=== PATIENT | female | born 1965 | race Caucasian/White ===

== ENCOUNTER 2017-09-06 03:05 | Inpatient (IN) | payer OTHER ==
[~2017-09-06] VITALS: Ht 152.4 cm; Wt 68.0 kg
[~2017-09-06 03:05] MED LIST: PREMARIN0.625 M1 PO
--- NOTE | 2017-09-06 13:41 | Operative Report ---
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 At first timeout was performed including patient's identification and the surgical procedure to be performed. Then general orotracheal anesthesia was induced with Nims tube for monitoring of the laryngeal nerves. The electrodes were connected to the NIMS monitor. Table was rotated 90 to the patient's left away from anesthesia with left neck toward the surgeon. Head was rotated to the right, left neck exposed. NIMS monitor electrodes were inserted into the left lower lip and trapezius for nerve monitoring of the marginal mandibular and spinal accessory nerves. The electrodes were was secured in place with OpSite. They were then connected to the NIMS monitor which was then set neck dissection mode, 4 leads. Neck was prepped and draped in the routine manner and surgery was performed. A horizontal incision was placed in a skin crease manner about 3 fingerbreadths below the mandible in a skin crease line over the lateral neck. The incision was crosshatched for the end of the surgery skin approximation. The incision was carried with a 15 blade through the skin and subcutaneous tissue. Platysma was identified and transected by using the clamp and cut technique to avoid injury to the marginal mandibular nerve. Skin was then elevated in subplatysmal manner at first superiorly, care was taken not to injure the marginal mandibular nerve. Then inferiorly including anterior neck to the midline and posterior neck over the sternocleidomastoid muscle all the way around to the posterior neck to the region of trapezius muscle. Inferiorly dissection was carried below the level of the cricoid just above the clavicle. Cutaneous branches exiting the Erb's point were identified and preserved including greater auricular nerve and anterior facial nerve. Finger palpation and examination revealed large nodes at level II A&B with adjacent smaller nodes which were all firm on palpation. Nodes were extending to level III. Attention was then paid to the anterior medial border of the sternocleidomastoid muscle and dissection was carried anteriorly and deep to the sternocleidomastoid muscle, with the nodes being dissected away from the sternocleidomastoid mastoid muscle. Then superiorly dissection was carried to the tail of the parotid. Deep to the tail and adjacent to sternocleidomastoid muscle and there were additional lymph nodes which were all dissected with the specimen. Then along the tail of the parotid anteriorly to the submaxillary gland. Anterior facial vein was identified. It was preserved. Marginal mandibular nerve was never fully identified throughout the entire dissection. Most likely the marginal mandibular nerve was more anterior to the area of dissection and not in the way of dissection. Dissection was carried along the inferior border of the submaxillary gland and the deep to the level of the digastric muscle. Fibrofatty tissue below the submaxillary gland under the digastric muscle was dissected with the specimen. Dissection was carried deep to the level of internal jugular. Fibrofatty tissue over the internal jugular was dissected away from the jugular vein. Digastric muscle defined the superior limit of the dissection. Jugular vein was preserved. Spinal accessory nerve was then searched for and identified going across all level II and level III lymph nodes in fact adenopathy spinal accessory nerve from the internal jugular. Spinal accessory was lateralized in relation to the internal jugular. Spinal accessory nerve was dissected and preserved. Sternocleidomastoid muscle was retracted laterally and dissection was carried deep and medial to it. Dissection was carried medially along the internal jugular and carotid. There was a significant venous plexus with large anterior jugular vein which was also preserved. Medial dissection was carried along the internal jugular all the way down to the lower neck, level III. Omohyoid muscle was identified traversing the internal jugular. Dissection was carried below the omohyoid down to level IV lymph node was identified. Blunt dissection was carried along this lymph node down to the inferior border until it was completely dissected and kept together with the remainder of the specimen. Ansa cervicalis was identified and preserved. All the fibrofatty tissue was swept superiorly with the specimen. Additional dissection was carried medial border of the sternocleidomastoid and deep to the sternocleidomastoid extending the dissection onto level V. Additional fibrofatty tissue was removed. Specimen was then removed and consisted primarily of level II A and B, level III and IV lymph nodes. Once the specimen was freed from underlying tissue it was removed. The surgical bed was examined and was no significant bleeding. Please note that during dissection of bleeding was controlled with bipolar. Surgery was completed. Wound was copiously irrigated. Additional bleeding sites cauterized with bipolar. Helotene powder was placed into the neck dissection bed. A #10 Prydeinig suction drains were inserted into the wound for drainage. One drain coming out through the anterior end of the incision the other through the posterior end of the incision. Drains were stitched in place with 2-0 silk. Closure was then carried at first platysma with 4-0 Vicryl inverting sutures followed by skin closure with 5-0 Vicryl horizontal subcuticular running stitch. Dermabond was applied to the incision followed by Steri-Strips. Drain tubing was connected to the self suction carnisters. Pressure dressing was placed with fluffs and wraparound four-inch gauze. Patient was then reawakened, extubated and taken to the recovery room in good condition. There were no complications. Estimated blood loss was 50 mL. Findings: Matted cervical adenopathy extending from levels 2A and B to level II and IV Discharge Disposition: PACU
--- NOTE | 2017-09-06 15:40 | PN- General Surgery ---
Subjective Subjective: Pt. has no complaints. Denies significant pain or dyspnea. Objective Vital Signs and I&Os Alert , oriented, appropriate Slightly hoarse Neck incision without signs of bleeding. Dressing over is clean and dry.JPX2 with scant amounts of serosang. drainage. Lungs clear bilat. Herat regular Abdomen benign Assessment/Plan Assessment/Plan s/p Left neck dissection PO#0 Stable No signs of bleeding, LEXIS output as expected,minimal. Slight hoarse, I expect it will resolve No respiratory issues Initiate diet Pain meds as ordered prn. Labs ordered for am. Core Measures Venous Thromboembolism VTE Risk Factors Surgery No Mechanical VTE Prophylaxis d/t Early Ambulation No VTE Pharm Prophylaxis d/t Other (on Heparin sc q 8 hrs)
[2017-09-06 18:00] VITALS: BP 122/84
[2017-09-06 20:16] VITALS: BP 130/82
[2017-09-06 22:15] VITALS: BP 118/76
[2017-09-07 01:56] VITALS: BP 102/64
[2017-09-07 06:54] VITALS: BP 112/70
[2017-09-07 08:19] LABS: ABSOLUTE EOSINOPHIL COUNT 0 /CUMM (0.0-0.7); ABSOLUTE LYMPH COUNT 2.2 /CUMM (1.2-3.4); EOSINOPHIL % 0.2 % (0-5)
[2017-09-07 08:45] LABS: ABSOLUTE BASOPHIL COUNT 0 /CUMM (0.0-0.2); ABSOLUTE GRANULOCYTE CT 12.2 /CUMM (1.4-6.5); ABSOLUTE MONOCYTE COUNT 1.1 /CUMM (0.10-0.60); BASOPHIL % 0.2 % (0.0-2.0); GRANULOCYTE % 78.5 % (42.2-75.2); MEAN CORPUSCULAR HGB 30.6 PG (27.0-31.0); MEAN CORPUSCULAR HGB CONC 33.8 G/DL (33.0-37.0); MEAN CORPUSCULAR VOLUME 90.6 FL (81.0-99.0); MEAN PLATELET VOLUME 7.9 FL (7.4-10.4); PLATELET COUNT 244 /CUMM (130-400); RBC DISTRIBUTION WIDTH 13.2 % (11.5-14.5); RED BLOOD CELL CT 3.98 /CUMM (4.20-5.40)
[2017-09-07 09:12] LABS: WHITE BLOOD CELL COUNT 15.6 /CUMM (4.8-10.8)
--- NOTE | 2017-09-07 09:29 | PN- Ear, Nose & Throat ---
Subjective Subjective: Patient was nauseated this am after standing up, no emesis, symptoms improved after IM tigan. Has been tolerating diet. No difficulty speaking or swallowing. Reports numbness to left ear since surgery. No chest pain, shortness of breath or difficulty breathing. Has been oob, has been voiding. Objective Vital Signs and I&Os Vital Signs Date Time Temp Pulse Resp B/P B/P Pulse O2 O2 Flow FiO2 Mean Ox Delivery Rate 09/07 0654 98.4 71 20 112/70 97 Nasal 1.0L Cannula 09/07 0156 98.3 74 20 102/64 97 Nasal 1.0L Cannula 09/07 0000 97 Nasal 1.0L Cannula 09/06 2215 98.8 74 20 118/76 98 Nasal 1.0L Cannula 09/06 2015 98.0 73 20 130/82 97 Nasal 1.0L Cannula 09/06 1800 97.8 78 20 122/84 98 Nasal 1.0L Cannula Intake & Output 09/07 1600 09/07 0800 09/07 0000 09/06 1600 09/06 0800 09/06 0000 Intake Total 920 740 Output Total 323 1425 Balance 597 -685 Intake, IV 800 500 Intake, Oral 120 240 Output, 23 25 Drainage Output, Urine 300 1400 Patient 140 lb Weight Physical Exam: General: Alert and oriented x3, no acute distress Cardiac: RRR, s1s2 Pulm: CTA bilaterally ABD: Soft, non-tender, non-distneded Extremities: Moves all extremities, distal sesnation intact, skin warm and well perused. DP intact. Bilateral calves soft and non-tender Neck: Dressing intact. JAGDISH x2 holding suction. Output low (see i/o) Assessment/Plan Assessment/Plan This is a 52 year old female, POD 1, s/p left neck dissection for thyroid ca. Placed in observation status postop for administration of iv abx while jagdish drains in place, monitoring, iv pain medication. -Continue abx -Continue jagdish x2 to self suction, will likely dc drains today, Dr. Boyd to see -IM tigan painful to injection site, will change to iv anti-emetic if needed -Continue diet as tolerated, will dc iv fluids for now, restart if nausea/dizzy -Possible dc to home today Will discuss with Dr. Boyd Core Measures Venous Thromboembolism VTE Risk Factors Surgery No Mechanical VTE Prophylaxis d/t Early Ambulation No VTE Pharm Prophylaxis d/t Other (on Heparin sc q 8 hrs)
[2017-09-07 10:25] VITALS: BP 120/60
--- NOTE | 2017-09-07 12:45 | PN- Gen Med ---
Assessment/Plan Assessment: POD#1 pt has nause, left neck pain, ear lobe numbness drains right- scant, left 20cc over night right drain removed dressing changed neck- no swelling or hematoma wbc 15.6, elevated Plan: s/ p neck dissection, left right drain was removed dresisng reapplied patinet needs to be admitted due to nause, vomitting, IV hydratiion, IV morphine for pain control will encourage pt to increase po intake manage nausea w/ zofran out of bed, ambulate ? remove second drain tomorrow repeat WBC tomorrow Discharge Plan Stable for Discharge? No Subjective Tele-Events Since Last Visit: noncontributary Review of Systems Constitutional: Reports: no symptoms. Objective Last 24 Hrs of Vital Signs/I&O Vital Signs Date Time Temp Pulse Resp B/P B/P Pulse O2 O2 Flow FiO2 Mean Ox Delivery Rate 09/07 1025 97.9 64 20 120/60 95 09/07 0654 98.4 71 20 112/70 97 Nasal 1.0L Cannula 09/07 0156 98.3 74 20 102/64 97 Nasal 1.0L Cannula 09/07 0000 97 Nasal 1.0L Cannula 09/06 2215 98.8 74 20 118/76 98 Nasal 1.0L Cannula 09/06 2015 98.0 73 20 130/82 97 Nasal 1.0L Cannula 09/06 1800 97.8 78 20 122/84 98 Nasal 1.0L Cannula Intake & Output 09/07 1600 09/07 0800 09/07 0000 Intake Total 920 740 Output Total 323 1425 Balance 597 -685 Intake, IV 800 500 Intake, Oral 120 240 Output, 23 25 Drainage Output, Urine 300 1400 Physical Exam General Appearance: Alert, Oriented X3, Mild Distress
--- NOTE | 2017-09-07 12:58 | PN- Ear, Nose & Throat ---
Surgical Brief Attending Note Brief Attending Note: Assessment/Plan Assessment: POD#1 pt has nause, left neck pain, ear lobe numbness drains right- scant, left 20cc over night right drain removed dressing changed neck- no swelling or hematoma wbc 15.6, elevated Plan: s/ p neck dissection, left right drain was removed dresisng reapplied patinet needs to be admitted due to nause, vomitting, IV hydratiion, IV morphine for pain control will encourage pt to increase po intake manage nausea w/ zofran out of bed, ambulate ? remove second drain tomorrow repeat WBC tomorrow Discharge Plan Stable for Discharge? No Subjective Tele-Events Since Last Visit: noncontributary Review of Systems Constitutional: Reports: no symptoms. Objective Last 24 Hrs of Vital Signs/I&O Vital Signs Date Time Temp Pulse Resp B/P B/P Pulse O2 O2 Flow FiO2 Mean Ox Delivery Rate 09/07 1025 97.9 64 20 120/60 95 09/07 0654 98.4 71 20 112/70 97 Nasal 1.0L Cannula 09/07 0156 98.3 74 20 102/64 97 Nasal 1.0L Cannula 09/07 0000 97 Nasal 1.0L Cannula 09/06 2215 98.8 74 20 118/76 98 Nasal 1.0L Cannula 09/06 2016 98.0 73 20 130/82 97 Nasal 1.0L Cannula 09/06 1800 97.8 78 20 122/84 98 Nasal 1.0L Cannula Intake & Output 09/07 1600 09/07 0800 09/07 0000 Intake Total 920 740 Output Total 323 1425 Balance 597 -685 Intake, IV 800 500 Intake, Oral 120 240 Output, 23 25 Drainage Output, Urine 300 1400
[2017-09-07 15:30] VITALS: BP 120/80
[2017-09-07 18:54] VITALS: BP 130/82
[2017-09-07 22:07] VITALS: BP 150/90
[2017-09-08 07:00] VITALS: BP 140/80
--- NOTE | 2017-09-08 09:30 | PN- Ear, Nose & Throat ---
See Addendum Subjective Subjective: Patient feeling a lot better. Pain is controlled on by mouth medication. No difficulty swallowing. She ate a full breakfast today without difficulty. Her nausea has completely resolved, she has no abdominal pain or distention, she is passing gas. Objective Vital Signs and I&Os Vital Signs Date Time Temp Pulse Resp B/P B/P Pulse O2 O2 Flow FiO2 Mean Ox Delivery Rate 09/08 0700 98.6 76 18 140/80 95 09/07 2207 98.6 70 18 150/90 96 09/07 1854 69 130/82 09/07 1530 98.0 65 20 120/80 98 09/07 1025 97.9 64 20 120/60 95 Intake & Output 09/08 1600 09/08 0800 09/08 0000 09/07 1600 09/07 0809/07 0000 Intake Total 750 800 450 920 740 Output Total 500 1760 2750 343 653 4078 Balance -500 -1010 -1950 250 597 -685 Intake, IV 450 800 800 500 Intake, Oral 300 450 120 240 Output, 10 23 25 Drainage Output, Urine 500 1750 2750 598 930 6775 Patient 150 lb Weight Physical Exam: Well-developed well-nourished no apparent distress. HEENT: Atraumatic, extraocular motion intact Neck: Supple, dressing in place dci, no significant swelling, LEXIS drain noted with scant amount of serous drainage speaking and sallowing without difficluty. Respiratory: No respiratory distress Extremities: No edema, no calf pain Neuro: Alert and oriented x3 Psych: Mood affect normal, normal memory normal judgment. Skin: Warm and dry, no rash on exposed skin Assessment/Plan Assessment/Plan POD2 s/p Left neck dissection nausea resolved pain controlled on PO meds. tolerating diet. out of bed, ambulate ? remove second drain today and DC home, will DEVON Boyd Core Measures Venous Thromboembolism VTE Risk Factors Surgery No Mechanical VTE Prophylaxis d/t Early Ambulation No VTE Pharm Prophylaxis d/t Other (on Heparin sc q 8 hrs)
[2017-09-08 09:49] LABS: ABSOLUTE BASOPHIL COUNT 0.1 /CUMM (0.0-0.2); ABSOLUTE EOSINOPHIL COUNT 0 /CUMM (0.0-0.7); ABSOLUTE GRANULOCYTE CT 9.2 /CUMM (1.4-6.5); ABSOLUTE LYMPH COUNT 2.2 /CUMM (1.2-3.4); ABSOLUTE MONOCYTE COUNT 0.7 /CUMM (0.10-0.60); BASOPHIL % 0.4 % (0.0-2.0); EOSINOPHIL % 0.4 % (0-5); GRANULOCYTE % 75.2 % (42.2-75.2); MEAN CORPUSCULAR HGB 30.8 PG (27.0-31.0); MEAN CORPUSCULAR HGB CONC 33.9 G/DL (33.0-37.0); MEAN CORPUSCULAR VOLUME 90.7 FL (81.0-99.0); MEAN PLATELET VOLUME 7.9 FL (7.4-10.4); PLATELET COUNT 241 /CUMM (130-400); RED BLOOD CELL CT 4.08 /CUMM (4.20-5.40); WHITE BLOOD CELL COUNT 12.3 /CUMM (4.8-10.8)
--- NOTE | 2017-09-08 11:26 | Patient Discharge Instructions ---
Discharge Instructions General Discharge Information You were seen/treated for: Name of Procedure: Neck dissection with Nims monitor, left Pre-Operative Diagnosis: Malignant cervical lymph nodes, left You had these procedures: see above Watch for these problems: Worsening redness, swelling, drainage from the wound, pain, fever, difficulty swallowing Call the office with any concerns Do not soak the wound: Yes No bath, but you may shower: No Other wound care: keep dressing in place, do not get wet Special Instructions: take medications that were prescribed to you by Dr Boyd as out pt. Diet Continue normal diet: Yes Activity Full Activity/No Limits: No Acute Coronary Syndrome Inclusion Criteria At DC or during hospital stay patient has or had the following: ACS DIAGNOSIS No Discharge Core Measures Meds if any: Prescribed or Continued at Discharge Meds if any: NOT Prescribed or Continued at Discharge Congestive Heart Failure Inclusion Criteria At DC or during hospital stay patient has or had the following: CHF DIAGNOSIS No Discharge Core Measures Meds if any: Prescribed or Continued at Discharge Meds if any: NOT Prescribed or Continued at Discharge Cerebrovascular accident Inclusion Criteria At DC or during hospital stay patient has or had the following: CVA/TIA Diagnosis No Discharge Core Measures Meds if any: Prescribed or Continued at Discharge Meds if any: NOT Prescribed or Continued at Discharge Venous thromboembolism Inclusion Criteria VTE Diagnosis No VTE Type NONE VTE Confirmed by (Test) NONE Discharge Core Measures - Per Current guidelines, there needs to be overlap - treatment for the first 5 days of Warfarin therapy. - If discharged on Warfarin prior to 5 days of - overlap therapy, the patient will need to be - assessed for post discharge needs including - *Post discharge parental anticoagulation - *Warfarin and/or parental anticoagulation education - *Follow up date to check INR post discharge At least 5 days overlap therapy as Inpatient No Meds if any: Prescribed or Continued at Discharge Note: Overlap Therapy is Warfarin and Anticoagulant Meds if any: NOT Prescribed or Continued at Discharge
--- NOTE | 2017-09-08 11:32 | Surg Short-stay <48hrs Dis Sum ---
Visit Information Visit Dates Admission Date: 09/07/17 Discharge Date: 09/08/17 Surgical Short Stay DC Summary Admission Diagnosis: Name of Procedure: Neck dissection with Nims monitor, left Pre-Operative Diagnosis: Malignant cervical lymph nodes, left Final Diagnosis: same Procedure(s): see above Summary/Significant Findings: Patient underwent the above mentioned procedure without complications. 2 drains were placed and removed 1 on postop day 1, the second on postop day 2. Her diet was advanced, her pain was well controlled, she received antibiotics for infectious prophylaxis, her drains were removed and she was deemed stable for discharge home with close outpatient follow-up Condition at Discharge: Good Discharge Disposition: home or self care Discharge instructions provided to patient/family: Yes Post discharge follow-up plan: To follow-up with Dr. Boyd on Sunday
== END 2017-09-08 12:10 | DRG 825 ==
LOC: STS 03:05 → PACUH 13:50 → ENRESERV 14:27 → ENTRNSPT 15:08 → EDTRNSPT 15:24 → EDTRNSPTSTS 15:24 → 2NA 15:29 → CMPTRNSPT 15:42 → 2NA 09-07 13:15
PROVIDERS: Nurse Practitioner; Physician Assistant Surgical
PROC: 07B10ZX Excision of Right Neck Lymphatic, Open Approach, Diagnostic (ICD-10-PCS; principal; 2017-09-07)
PROC: 4A11X4G Monitoring of Peripheral Nervous Electrical Activity, Intraoperative, External Approach (ICD-10-PCS; 2017-09-07)
DX: C96.9 Malignant neoplasm of lymphoid, hematopoietic and related tissue, unspecified (principal)
CPT/HCPCS: 2NASP; 36415; 82436; C9399; J0131; J0690; J1644; J2405; J3250

== ENCOUNTER 2017-10-04 04:29 | Inpatient (IN) | payer OTHER ==
[~2017-10-04] VITALS: Ht 152.4 cm; Wt 62.6 kg
[~2017-10-04 04:29] MED LIST changes: +MULTIVITAMINS1 EAC9 PO
--- NOTE | 2017-10-04 13:35 | Operative Report ---
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 Skin lesion lower midline neck Post-Operative Diagnosis: Same Estimated Blood Loss: less than 50ml Surgeon/Lumite Injector: Oliver ELDRIDGE,TATYANA Dan Anesthesia: general endotracheal tube Monitors: NIMS monitor Drains: LEXIS 2 Specimens: Total thyroid Encarnacion ligament thyroid tissue, right Encarnacion ligament thyroid tissue, left Skin lesion Frozen section to rule out parathyroid Microbiology: Non- Complications: Non- Condition: Stable on leaving the OR Operative Indication: Patient presented with left cervical nodes enlargement workup was consistent with papillary carcinoma of the thyroid Patient underwent left neck dissection which confirmed papillary carcinoma of the thyroid metastatic to lymph nodes Patient now presents for total thyroidectomy and central neck exploration Operative/Procedure Note Note: The patient was brought to the operating room. Patient was placed on the operating room table in supine position. At first timeout was performed including patient's identification and the surgical procedure to be performed. Then general orotracheal anesthesia was induced. NIMS tube was inserted with direct visualization with the glida scope. Electrodes were placed directly over the vocal cords. NIMS tube was secured in place with tape. The grounding electrodes were then inserted into the sternum area and all electrodes were connected to the NIMS monitor. NIMS monitor was set on thyroidectomy mode. Gentle top of the patient's lower neck in para laryngeal and tracheal region yielded a nerve action potential which was visualized on the monitor. Action potential visualized on both sides which confirmed proper positioning of the NIMS tube. Neck was slightly hyperextended. The proposed incision was previously marked in a short-term surgery with patient sitting upright. Surgical table was left in place with head toward anesthesia. Neck was prepped and draped in the routine manner and surgery was performed. A horizontal incision was placed in a skin crease manner over the lower neck as previously marked. The incision was then crosshatched for skin approximation at the end of the surgery. The incision was carried with a 15 blade through the skin and subcutaneous tissue. Platysma was identified and transected next. The superior skin flap was then elevated in subplatysmal manner. Then the inferior skin flap was elevated in subplatysmal manner. Both skin flaps were then retracted by application stay sutures with 2-0 silk. Care was taken to preserve the subplatysmal venous plexus which was quite extensive. Strap muscles were identified in the midline and . Sternal notch, trachea, cricoid ring and larynx were palpated. Dissection was carried in the midline over upper trachea until the thyroid isthmus was identified. Strap muscles on the left were then retracted laterally and attention was paid to the inferior thyroid lobe. All venous and arterial supply was then carefully dissected. It was bipolared, as well as clamped, cut and tied. The inferior parathyroid gland was not clearly visualized. However, the dissection was carried directly on the thyroid capsule which preserved the inferior parathyroid gland. Thyroid gland was very vascular. Next, blunt dissection was used to dissect overlying soft tissue over the anterior surface of the gland. The gland was normal size, somewhat firm . It had significant venous plexus all over. Inferior lateral dissection was carried next. Venous supply was dissected away from the gland and the clamped cut and tied. The superior parathyroid gland was identified on the undersurface of the gland. Parathyroid gland was gently elevated and from the thyroid tissue and left intact. Superiorly, dissection was carried from the thyroid isthmus over the anterior superior surface of the gland. The vascular supply was gently dissected and severed by using bipolar. Superior vascular pedicle including artery and vein were identified. They were clamped cut and tied. The gland was then gently rotated out of its bed. The only attachments left were at the Encarnacion ligament. So far recurrent laryngeal nerve was not fully identified. As the gland was markedly stuck at the Encarnacion ligament decision was made to proceed with dissection on the contralateral side, right. Next thyroid isthmus was completely freed over the soft inferior and superior border and its undersurface. Strap muscles on the right were then retracted laterally and attention was paid to the inferior thyroid lobe on the right. Overall the right lobe appears to be less adhesed to surrounding structures. All venous and arterial supply was then carefully dissected. It was bipolared, as well as clamped, cut and tied. The inferior parathyroid gland was not clearly visualized. However, the dissection was carried directly on the thyroid capsule which preserved the inferior parathyroid gland. Thyroid gland was very vascular. Next, blunt dissection was used to dissect overlying soft tissue over the anterior surface of the gland. The gland was normal size, somewhat firm . It had significant venous plexus all over. Inferior lateral dissection was carried next. Venous supply was dissected away from the gland and the clamped cut and tied. The superior parathyroid gland was identified on the undersurface of the gland. Parathyroid gland was gently elevated and from the thyroid tissue and left intact. Superiorly, dissection was carried from the thyroid isthmus over the anterior superior surface of the gland. The vascular supply was gently dissected and severed by using bipolar. Superior vascular pedicle including artery and vein were identified. They were clamped cut and tied. The gland was then gently rotated out of its bed. The only attachments were at the Encarnacion ligament. The recurrent laryngeal nerve was identified grossly and where the nerve stimulator. At this point careful dissection was carried from the belly ligament until the entire gland was freed on the right side, with full observation of the recurrent laryngeal nerve positioning. The right lobe was rotated out of the surgical bed and the only attachment was now at the Encarnacion ligament on the left. Careful blunt dissection of the Encarnacion ligament was then carried. The left lower lobe was completely freed and the entire thyroid gland was removed. There was a small outpouching at the inferior pole on the left which possibly could've been a parathyroid gland. A biopsy of this tissue was then taken. Frozen section revealed thyroid tissue and no parathyroid gland. At this point recurrent laryngeal nerve on the left was identified and confirmed with Nims monitor. Now, residual thyroid tissue present at the Encarnacion ligament on the left was carefully dissected and removed followed by similar maneuver on the right. Thyroid gland Now examination was carried at the central neck, gentle dissection and exploration for cervical lymph nodes was carried through the surrounding tissue within the thyroid bed. No adenopathy was encountered both on the right and the left as well as in pretracheal region. No lymph nodes were removed. Surgical bed was copiously irrigated. Surgeons changed gloves and applied fresh towels around the wound. Additional irrigation was then carried. The wound was carefully inspected for bleeders. There was small amount of bleeding in the region of recurrent laryngeal nerve. Pressure application with surgical sponges was carried for a period of 5 minutes with resultant resolution of the bleeding. Valsalva was applied. There was no air leak and no additional bleeding. Helotene powder was placed into the thyroid bed for hemostasis. Two #10 Citizen [place] suction drains were inserted into the wound for drainage each exiting on each end of the wound. They were stitched 2-0 silk. Closure was then carried at first platysma with 4-0 Vicryl inverting sutures. Then skin was approximated with subcuticular horizontal running stitch with 5-0 Monocryl . At the time of the skin closure and there was a lesion just adjacent to the incision. This was approximately one by one raised lesion with brown discoloration. The lesion was shave excised and submitted to pathology. Dermabond was applied to the incision followed by Steri-Strips. Pressure dressing was placed with fluffs and wraparound four-inch Alida gauze. Patient was then reawakened, recurrent laryngeal nerve was monitored during extubation. There was normal action potential on both sides. Patient was then extubated and taken to the recovery room in good condition. There were no complications. Estimated blood loss was 50 mL. Findings: Thyroid glands normal size, highly vascular, somewhat fibrosed on the left side, markedly adhesed Encarnacion ligament, both recurrent laryngeal nerves were identified and preserved, both nerves were stimulated at the end of the procedure and there were working Discharge Disposition: PACU
[2017-10-04 14:40] VITALS: BP 124/80
--- NOTE | 2017-10-04 15:29 | PN- General Surgery ---
Subjective Subjective: Pt. in CCU, no complaining, States she is comfortable . Sipping on clears without difficulty of swallowing. Objective Vital Signs and I&Os Intake & Output 10/04 1600 10/04 0800 10/04 0000 10/03 1600 10/03 0000 Intake Total Output Total Balance Patient 138 lb Weight Alert, oriented, no hoarsness.VSS Lungs are clear Neck with dressing over, it is clean, dry. JPX2 with scant amounts of serosang. drainage. No swelling. Heart regular Abdomen benign. Assessment/Plan Assessment/Plan s/p total thyroidectomy POD#0 Stable hemodynamics. Neck incision/ wound as expected.LEXIS output minimal. Comfortable on current pain meds. Calcium in PACU 8.7, next pending for 8 pm tonight. Continue clears and may advance as tolerated. Core Measures Venous Thromboembolism VTE Risk Factors Surgery No Mechanical VTE Prophylaxis d/t LowRisk-No Interven Req'd No VTE Pharm Prophylaxis d/t LowRisk-No Interven Req'd
[2017-10-05] VITALS: BP 106/64
[2017-10-05 05:18] LABS: ABSOLUTE BASOPHIL COUNT 0 /CUMM (0.0-0.2); ABSOLUTE EOSINOPHIL COUNT 0 /CUMM (0.0-0.7); ABSOLUTE GRANULOCYTE CT 16.1 /CUMM (1.4-6.5); ABSOLUTE LYMPH COUNT 1.8 /CUMM (1.2-3.4); ABSOLUTE MONOCYTE COUNT 1.1 /CUMM (0.10-0.60); BASOPHIL % 0.2 % (0.0-2.0); EOSINOPHIL % 0 % (0-5); HEMATOCRIT 38.3 % (37-47); MEAN CORPUSCULAR HGB 29.9 PG (27.0-31.0); MEAN CORPUSCULAR HGB CONC 32.6 G/DL (33.0-37.0); MEAN CORPUSCULAR VOLUME 91.6 FL (81.0-99.0); PLATELET COUNT 238 /CUMM (130-400); RED BLOOD CELL CT 4.18 /CUMM (4.20-5.40); WHITE BLOOD CELL COUNT 19.1 /CUMM (4.8-10.8)
--- NOTE | 2017-10-05 05:43 | Admission Core Measures ---
Acute Coronary Syndrome (CM) ACS Core Measures Acute Coronary Syndrome Diagnosis No Congestive Heart Failure (NEW) CHF Core Measures Congestive Heart Failure Diagnosis No Cerebrovascular Accident (NEW) CVA Core Measures CVA/TIA Diagnosis No Venous Thromboembolism VTE Core Eind (View Protocol) VTE Risk Factors Surgery No Mechanical VTE Prophylaxis d/t LowRisk-No Interven Req'd No VTE Pharm Prophylaxis d/t LowRisk-No Interven Req'd Problem List As ranked by this Provider includes Assessment & Plan 1. Papillary thyroid carcinoma 2. S/P total thyroidectomy HOME MEDS Home Med List Estrogenic Subst Conj (Premarin) 0.625 MG TABLET 1 TAB PO DAILY HRT (Reported ) Multiple Vitamin (Multivitamins) 1 EACH TABLET 1 TAB PO DAILY supplement ( Reported)
[2017-10-05 05:54] LABS: GRANULOCYTE % 84.6 % (42.2-75.2)
--- NOTE | 2017-10-05 06:02 | PN- Ear, Nose & Throat ---
Subjective Subjective: Patient reports incisional pain, which is well controlled. She reports mild pain with swallowing and discomfort swallowing carbonated beverages. States she has mostly had water. Reports that she has an appetite and is requesting food. Reports one episode of dizziness when ambulating oob to the bathroom. Reports voiding. Denies fever, chills, chest pain or trouble breathing. Objective Vital Signs and I&Os Vital Signs Date Time Temp Pulse Resp B/P B/P Pulse O2 O2 Flow FiO2 Mean Ox Delivery Rate 10/05 0000 98.9 62 12 106/64 95 Room Air Room Air 10/04 1440 97.3 89 20 124/80 95 Room Air Intake & Output 10/05 0000 10/04 1600 10/04 0810/04 0000 10/03 1600 Intake Total 700 Output Total 910 Balance -210 Intake, IV 700 Intake, Oral 0 Output, 10 Drainage Output, Urine 900 Patient 138 lb 138 lb Weight Weight Reported by Patient Measurement Method Physical Exam: Gen - resting comfortably in icu awake an alert in NAD Neck - circumfrential dressing c/d/i, steri in place, LEXIS x2 with serosang drainage, roughly 15 cc in right drain and scant amount < 5cc in left drain, appropriately tender wanda-incisionally, no erythema, drainage or hematoma noted Cardiac - S1S2 noted, RRR Lungs - CTAB Ext - alps in place, no edema or calf tenderness Current Medications: Current Medications Sig/Niya Start time Last Medication Dose Route Stop Time Status Admin Acetaminophen 325 MG Q4P PRN 10/04 1515 AC 10/04 PO 2350 Acetaminophen 1,000 MG .STK-MED ONE 10/04 1301 DC IV 10/04 1302 Calcium/Vitamin D 500 MG BID 10/04 1328 AC 10/04 PO 2154 Cefazolin Sodium 1,000 MG IQ8 10/04 1600 AC 10/04 IV 10/05 1559 2349 Cefazolin Sodium 1,000 MG ONCE 10/04 0000 DC IV 10/04 2359 Estrogens Conjugated 0.625 MG DAILY 10/05 1000 DC PO Fentanyl Citrate 100 MCG .STK-MED ONE 10/04 0645 DC IM 10/04 0646 Hydromorphone HCl 1 MG Q4P PRN 10/04 1515 AC 10/05 IV 0150 Lactated Ringer's 1,000 ML 100 MLS/HR 10/04 1515 AC IV Liothyronine Sodium 30 MCG BID 10/04 1417 AC 10/04 PO 2153 Midazolam HCl 4 MG .STK-MED ONE 10/04 0645 DC IM 10/04 0646 Multivitamins 1 TAB DAILY 10/05 1000 DC Therapeutic PO Non-Formulary 30 UNIT BID 10/04 1356 CAN Medication ANY Omeprazole 20 MG DAILY AC 10/05 0700 AC PO Ondansetron HCl 4 MG Q6P PRN 10/04 1515 AC 10/04 IV 2147 Oxycodone HCl 10 MG Q6-PRN PRN 10/04 1515 AC 10/04 PO 1824 Oxycodone HCl 5 MG Q6P PRN 10/04 1330 AC PO Polyethylene Glycol 17 GM DAILY 10/05 1000 AC PO Remifentanil HCl 4 MG .STK-MED ONE 10/04 0644 DC IV 10/04 644 Scopolamine HBr 0 .STK-MED ONE 10/04 0752 DC TOP Results Last 48 Hours of Labs: Laboratory Tests 10/05 10/05 10/04 0425 0425 2014 Chemistry Sodium (137 - 145 mmol/L) 142 Potassium (3.5 - 5.1 mmol/L) 3.8 Chloride (98 - 107 mmol/L) 105 Carbon Dioxide (22 - 30 mmol/L) 23 Anion Gap (5 - 16) 13 BUN (7 - 17 mg/dL) 11 Creatinine (0.5 - 1.0 mg/dL) 0.6 Estimated GFR (>60 ml/min) > 60 BUN/Creatinine Ratio (7 - 25 %) 18.3 Calcium (8.4 - 10.2 mg/dL) Cancelled 9.0 8.6 Hematology CBC w Diff NO MAN DIFF REQ WBC (4.8 - 10.8 /CUMM) 19.1 H RBC (4.20 - 5.40 /CUMM) 4.18 L Hgb (12.0 - 16.0 G/DL) 12.5 Hct (37 - 47 %) 38.3 MCV (81.0 - 99.0 FL) 91.6 MCH (27.0 - 31.0 PG) 29.9 MCHC (33.0 - 37.0 G/DL) 32.6 L RDW (11.5 - 14.5 %) 13.0 Plt Count (130 - 400 /CUMM) 238 MPV (7.4 - 10.4 FL) 8.0 Gran % (42.2 - 75.2 %) 84.6 H Lymphocytes % (20.5 - 51.1 %) 9.7 L Monocytes % (1.7 - 9.3 %) 5.5 Eosinophils % (0 - 5 %) 0 Basophils % (0.0 - 2.0 %) 0.2 Absolute Granulocytes (1.4 - 6.5 /CUMM) 16.1 H Absolute Lymphocytes (1.2 - 3.4 /CUMM) 1.8 Absolute Monocytes (0.10 - 0.60 /CUMM) 1.1 H Absolute Eosinophils (0.0 - 0.7 /CUMM) 0 Absolute Basophils (0.0 - 0.2 /CUMM) 0 10/04 10/04 1349 1325 Chemistry Sodium (137 - 145 mmol/L) Cancelled 143 Potassium (3.5 - 5.1 mmol/L) Cancelled 3.7 Chloride (98 - 107 mmol/L) Cancelled 110 H Carbon Dioxide (22 - 30 mmol/L) Cancelled 22 Anion Gap (5 - 16) Cancelled 11 BUN (7 - 17 mg/dL) Cancelled 11 Creatinine (0.5 - 1.0 mg/dL) Cancelled 0.6 Estimated GFR (>60 ml/min) > 60 BUN/Creatinine Ratio (7 - 25 %) Cancelled 18.3 Calcium (8.4 - 10.2 mg/dL) 8.7 Albumin (3.5 - 5.0 g/dL) 3.5 Assessment/Plan Assessment/Plan 52 F POD 1 s/p total thyroidectomy secondary to papillary thyroid carcinoma, metastatic to left neck lymph nodes who is recovering well. Calcium levels in normal range. Cont clears, advance as tolerated Ancef postop while drain in place Cont Cytomel Cont Calcium and Vitamin D supplements bid Pain meds prn LEXIS x2 to bulb suction, anticipate removal of left drain today Home meds on board Encourage ambulation Anticipate d/c within 24-48 hours Likely transfer out of ICU Will d/w Dr. Body Core Measures Venous Thromboembolism VTE Risk Factors Surgery No Mechanical VTE Prophylaxis d/t LowRisk-No Interven Req'd No VTE Pharm Prophylaxis d/t LowRisk-No Interven Req'd
[2017-10-05 08:00] VITALS: BP 122/70
[2017-10-05 14:35] VITALS: BP 118/78
--- NOTE | 2017-10-05 14:42 | Patient Discharge Instructions ---
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 Skin lesion lower midline neck You had these procedures: Surgery Date: 10/04/17 Name of Procedure: Total thyroidectomy with NIMS monitor With central neck exploration Shave excision neck lesion Watch for these problems: fever>101.3, increased pain, redness/swelling/drainage, dizziness, shortness of breath, chest pains, difficulty swallowing, paresthesias No bath, but you may shower: Yes Other wound care: as per Dr.Byrne daniela wolff dressing changes Diet Continue normal diet: Yes Recommended Diet: Regular Activity Full Activity/No Limits: No Activity Self Limited: Yes Pounds, do NOT lift more than: 10 Acute Coronary Syndrome Inclusion Criteria At DC or during hospital stay patient has or had the following: ACS DIAGNOSIS No Discharge Core Measures Meds if any: Prescribed or Continued at Discharge Meds if any: NOT Prescribed or Continued at Discharge Congestive Heart Failure Inclusion Criteria At DC or during hospital stay patient has or had the following: CHF DIAGNOSIS No Discharge Core Measures Meds if any: Prescribed or Continued at Discharge Meds if any: NOT Prescribed or Continued at Discharge Cerebrovascular accident Inclusion Criteria At DC or during hospital stay patient has or had the following: CVA/TIA Diagnosis No Discharge Core Measures Meds if any: Prescribed or Continued at Discharge Meds if any: NOT Prescribed or Continued at Discharge Venous thromboembolism Inclusion Criteria VTE Diagnosis No VTE Type NONE VTE Confirmed by (Test) NONE Discharge Core Measures - Per Current guidelines, there needs to be overlap - treatment for the first 5 days of Warfarin therapy. - If discharged on Warfarin prior to 5 days of - overlap therapy, the patient will need to be - assessed for post discharge needs including - *Post discharge parental anticoagulation - *Warfarin and/or parental anticoagulation education - *Follow up date to check INR post discharge At least 5 days overlap therapy as Inpatient No Meds if any: Prescribed or Continued at Discharge Note: Overlap Therapy is Warfarin and Anticoagulant Meds if any: NOT Prescribed or Continued at Discharge
[2017-10-05] MEDS ORDERED: TYLENOL325 M1 PO (14:50)
[2017-10-05] MEDS ORDERED: OXYCODONE HCL5 M1 PO (14:50)
[2017-10-05] MEDS ORDERED: OS-CAL 500+D31 EACH PO (14:50)
[2017-10-05] MEDS ORDERED: CYTOMEL25 MC1 PO (14:50)
--- NOTE | 2017-10-05 14:59 | Surg Short-stay <48hrs Dis Sum ---
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 Skin lesion lower midline neck Final Diagnosis: same as above, s/p Surgery Date: 10/04/17 Name of Procedure: Total thyroidectomy with NIMS monitor With central neck exploration Shave excision neck lesion Procedure(s): Surgery Date: 10/04/17 Name of Procedure: Total thyroidectomy with NIMS monitor With central neck exploration Shave excision neck lesion Summary/Significant Findings: Electively scheduled total thyroidectomy with NIMS monitor, central neck exploration, and shave excision neck lesion by on 10/04/17 for history of papillary thyroid carcinoma metastatic to left neck lymph nodes and skin lesion lower midline neck. Admitted to icu post-operatively for monitoring, with antibiotics continued wanda-operatively until both drains were removed. Serial calcium checks were stable. Diet was advanced as tolerated, and she was downgraded to gen med status on POD#1, with plans for discharge to home on POD#2 with medications as prescribed by . Condition at Discharge: stable Discharge Disposition: home or self care Discharge instructions provided to patient/family: Yes Post discharge follow-up plan: follow up with next week Copies to: Shaun ELDRIDGE,Graham Winslow
--- NOTE | 2017-10-05 19:44 | PN- Ear, Nose & Throat ---
Subjective Subjective: POD #1 Afeb, vss tolerated regular diet for dinner today quite well voice clear ca 9.0 this AM WBC 19 Neck - dresing changed, one LEXIS already removed, steristrips in palce, no hematma , no edema Review of Systems: noncontributary Objective Vital Signs and I&Os Vital Signs Date Time Temp Pulse Resp B/P B/P Pulse O2 O2 Flow FiO2 Mean Ox Delivery Rate 10/05 1435 99.3 86 20 118/78 96 Room Air Room Air 10/05 799 99.0 72 22 122/70 94 Room Air 10/05 0000 98.9 62 12 106/64 95 Room Air Room Air Intake & Output 10/05 1600 10/05 0000 10/04 1600 10/04 0000 Intake Total 820 500 700 Output Total 1200 815 910 Balance -380 -315 -210 Intake, IV 20 300 700 Intake, Oral 800 200 0 Number 0 Bowel Movements Output, 15 10 Drainage Output, Urine 1200 800 900 Patient 138 lb 138 lb Weight Weight Reported by Patient Reported by Patient Measurement Method Assessment/Plan Assessment/Plan 1. s/p thyroidectomy, 10/04/2017 2. Postoperative leukocytosis Stable postop We will remove LEXIS #2 tomorrow Check calcium and CBC prior to discharge Discharge home tomorrow Patient already has Cytomel, Duricef and Percocet at home She is to take calcium twice daily 2 weeks Keep dressing on until Sunday, then remove Follow up in the office on 10/10/2017 Core Measures Venous Thromboembolism VTE Risk Factors Surgery No Mechanical VTE Prophylaxis d/t LowRisk-No Interven Req'd No VTE Pharm Prophylaxis d/t LowRisk-No Interven Req'd
[2017-10-05 21:49] VITALS: BP 120/70
[2017-10-06 08:25] LABS: ABSOLUTE BASOPHIL COUNT 0.1 /CUMM (0.0-0.2); ABSOLUTE EOSINOPHIL COUNT 0.1 /CUMM (0.0-0.7); ABSOLUTE LYMPH COUNT 2.7 /CUMM (1.2-3.4); ABSOLUTE MONOCYTE COUNT 0.8 /CUMM (0.10-0.60); BASOPHIL % 0.5 % (0.0-2.0); EOSINOPHIL % 0.4 % (0-5); GRANULOCYTE % 68.8 % (42.2-75.2); HEMATOCRIT 35.2 % (37-47); MEAN CORPUSCULAR HGB 30.5 PG (27.0-31.0); MEAN CORPUSCULAR HGB CONC 33.8 G/DL (33.0-37.0); MEAN CORPUSCULAR VOLUME 90.1 FL (81.0-99.0); MEAN PLATELET VOLUME 7.6 FL (7.4-10.4); PLATELET COUNT 200 /CUMM (130-400); RBC DISTRIBUTION WIDTH 13.2 % (11.5-14.5); RED BLOOD CELL CT 3.91 /CUMM (4.20-5.40); WHITE BLOOD CELL COUNT 11.6 /CUMM (4.8-10.8)
--- NOTE | 2017-10-06 09:46 | PN- Ear, Nose & Throat ---
Subjective Subjective: POD#2 S/P TOTAL THYROIDECTOMY NO MAJOR ISSUES OVERNIGHT DENIES CP, SOB, NO N+V WITH DIET NO SWALLOWING DIFFICULTY Objective Vital Signs and I&Os Vital Signs Date Time Temp Pulse Resp B/P B/P Pulse O2 O2 Flow FiO2 Mean Ox Delivery Rate 10/059 98.2 80 20 120/70 96 Room Air 10/05 1435 99.3 86 20 118/78 96 Room Air Room Air Intake & Output 10/06 1600 10/06 0810/06 0000 10/05 1600 10/05 0810/05 0000 Intake Total 100 600 820 500 700 Output Total 5 1200 815 910 Balance 100 595 -380 -315 -210 Intake, IV 20 300 700 Intake, Oral 100 600 800 200 0 Number 0 Bowel Movements Output, 5 15 10 Drainage Output, Urine 1200 800 900 Patient 138 lb Weight Weight Reported by Patient Measurement Method Physical Exam: CV: RRR LUNGS: CLEAR ABD: SOFT, +BS EXT: WARM, DISTAL CMS INTACT NECK: DRSG DRY NO HEMATOMA LEXIS: MINIMAL SANGUINOUS DRAINAGE Assessment/Plan Assessment/Plan ENT STABLE PLAN D/C DRAIN HOME TODAY WITH SCRIPTS GIVEN BY DR VELAZCO CALL SUNDAY FOR F/U Core Measures Venous Thromboembolism VTE Risk Factors Surgery No Mechanical VTE Prophylaxis d/t LowRisk-No Interven Req'd No VTE Pharm Prophylaxis d/t LowRisk-No Interven Req'd
== END 2017-10-06 12:40 | DRG 626 ==
LOC: STS 04:29 → PACUH 13:12 → ENRESERV 13:55 → ENTRNSPT 14:30 → EDTRNSPTSTS 14:34 → EDTRNSPT 14:34 → CMPTRNSPT 14:53 → CRI 14:54 → ENTRNSPT 10-05 13:59 → EDTRNSPTSTS 10-05 14:09 → EDTRNSPT 10-05 14:09 → CMPTRNSPT 10-05 14:32 → 2NB 10-05 14:43 → ENPENDDIS 10-06 10:16 → DELTRNSPT 10-06 12:17 → ENTRNSPT 10-06 12:20 → EDTRNSPTSTS 10-06 12:31 → EDTRNSPT 10-06 12:31 → 2NB 10-06 12:40 → CMPTRNSPT 10-06 12:41
PROVIDERS: Physician Assistant; Physician Assistant Surgical
PROC: 0GTK0ZZ Resection of Thyroid Gland, Open Approach (ICD-10-PCS; principal; 2017-10-04)
PROC: 4A11X4G Monitoring of Peripheral Nervous Electrical Activity, Intraoperative, External Approach (ICD-10-PCS; 2017-10-04)
PROC: 0HB4XZX Excision of Neck Skin, External Approach, Diagnostic (ICD-10-PCS; 2017-10-04)
DX: C73 Malignant neoplasm of thyroid gland (principal); C77.0 Secondary and unspecified malignant neoplasm of lymph nodes of head, face and neck; L98.9 Disorder of the skin and subcutaneous tissue, unspecified; M19.90 Unspecified osteoarthritis, unspecified site; F17.210 Nicotine dependence, cigarettes, uncomplicated; Z87.11 Personal history of peptic ulcer disease
CPT/HCPCS: 2NBSP; CCU; 36415; 82436; C9399; J0131; J0690; J2405

== ENCOUNTER 2017-10-10 10:53 | Inpatient (IN) | payer OTHER ==
[~2017-10-10] VITALS: Ht 152.4 cm; Wt 61.9 kg
[~2017-10-10 10:53] MED LIST changes: +CYTOMEL25 MC1 PO; +OS-CAL 500+D31 EACH PO; +OXYCODONE HCL5 M1 PO; +TYLENOL325 M1 PO
--- NOTE | 2017-10-10 11:22 | ED GENERAL ADULT ---
History of Present Illness General Chief Complaint: Abdominal Pain/Flank Pain Stated Complaint: RT SIDED ABD PAIN SOB S/P THYROID SURG LAST WEEK Source: patient, old records Exam Limitations: no limitations Vital Signs & Intake/Output Vital Signs & Intake/Output Vital Signs Date Time Temp Pulse Resp B/P B/P Pulse O2 O2 Flow FiO2 Mean Ox Delivery Rate 10/11 0645 99.1 108 12 130/80 94 Room Air 10/10 2230 Room Air 10/10 2124 98.0 118 20 128/83 97 Room Air 10/10 1914 97.8 105 22 120/62 100 Nasal 2.5L Cannula 10/10 1513 97 Nasal 2.0L Cannula 10/10 1420 125 22 147/93 97 Room Air 10/10 1403 99.0 124 18 144/89 98 Room Air ED Intake and Output 10/11 0000 10/10 1200 Intake Total 0 Output Total Balance 0 Intake, Oral 0 Patient 136 lb 138 lb Weight Weight Bed scale Reported by Patient Measurement Method Allergies Coded Allergies: morphine (Intermediate, VOMITING 10/10/17) Reconcile Medications Acetaminophen (Tylenol) 325 MG TABLET 325 MG PO Q4-6 PRN PRN pain control available over the counter Calcium Carbonate/Vitamin D3 (Os-Yaakov 500+D3 Caplet) 500 MG-600 TABLET 500 MG PO BID s/p total thyroidectomy continue as per Estrogenic Subst Conj (Premarin) 0.625 MG TABLET 1 TAB PO DAILY HRT (Reported ) Liothyronine Sodium (Cytomel) 25 MCG TABLET 30 MCG PO BID s/p total thyroidectomy as per Multiple Vitamin (Multivitamins) 1 EACH TABLET 1 TAB PO DAILY supplement ( Reported) Oxycodone HCl 5 MG TABLET 1-2 TAB PO Q4-6 PRN PRN pain control tylenol may be used alternatively or in combination Triage Nurses Notes Reviewed? yes Onset: Abrupt Duration: day(s): (2), constant, continues in ED, getting worse Timing: single episode today Injury Environment: home Severity Numbers: 7 No Modifying Factors: none Associated Symptoms: back pain LMP (ages 10-50): unknown : No Patient currently breastfeeds: No HPI: 52-year-old female past medical history of thyroid cancer one week status post thyroidectomy presents for evaluation of pain in her chest and upper back. The pain started yesterday and has been persistent. The pain is located in the right side of her upper back and radiates into the front of her right chest. The pain is worse with deep inspiration or movement. She rates the pain as sharp 10 out of 10. She is not taking any medicine for this. She reports associated shortness of breath. No coughing hemoptysis lower extremity edema. She also reports pain in the right lower quadrant of her abdomen and right flank. No fevers. She saw Dr. VELAZCO who did her surgery and was referred here to rule out pulmonary embolism versus pneumonia. (Darius Diaz) Past History Medical History Any Pertinent Medical History? see below for history Neurological: NONE Cardiovascular: NONE Respiratory: NONE Gastrointestinal: NONE Hepatic: NONE Renal: NONE Psychiatric: NONE Endocrine: NONE Blood Disorders: NONE Cancer(s): NONE VOICE PATHOLOGIST/Reproductive: NONE History of MRSA: No History of VRE: No History of CDIFF: No Surgical History Surgical History: tHYROIDECTOMY, NECK DISSECTION Psychosocial History Services at Home None What is your primary language [place] Citizen Family History Hx Contributory? No (Darius Diaz) Review of Systems Review of Systems Constitutional: Reports: no symptoms. EENTM: Reports: no symptoms. Respiratory: Reports: see HPI, short of breath. Cardiovascular: Reports: see HPI, chest pain. GI: Reports: see HPI, abdominal pain. Genitourinary: Reports: no symptoms. Musculoskeletal: Reports: see HPI, back pain. Skin: Reports: no symptoms. Neurological/Psychological: Reports: no symptoms. Hematologic/Endocrine: Reports: no symptoms. Immunologic/Allergic: Reports: no symptoms. All Other Systems: Reviewed and Negative (Darius Diaz) Physical Exam Physical Exam General Appearance: well developed/nourished, no apparent distress, alert, awake Head: atraumatic, normal appearance Eyes: Bilateral: normal appearance, PERRL, EOMI. Ears, Nose, Throat: normal pharynx, normal ENT inspection, hearing grossly normal Neck: normal inspection, supple, full range of motion Respiratory: normal breath sounds, no respiratory distress, lungs clear, CHEST WALL TENDER TO PALPATION OVER THE RIGHT CHEST. rIGHT LATERAL RIBS TENDER.NO BRUISING SWELLING OR ABRASIONS. pAIN WITH DEEP INSPIRATION AND RANGE OF MOTION OF THE TRUNK Cardiovascular: normal peripheral pulses, tachycardia (116) Peripheral Pulses: 2+ radial (R), 2+ radial (L) Gastrointestinal: normal bowel sounds, soft, no organomegaly, tenderness (RUQ, RT FLANK ) Back: normal inspection, normal range of motion, no vertebral tenderness Extremities: normal inspection, normal range of motion, no edema Neurologic/Psych: no motor/sensory deficits, awake, alert, oriented x 3, normal gait Skin: intact, normal color, warm/dry Core Measures ACS in differential dx? Yes CVA/TIA Diagnosis: No Sepsis Present: No Sepsis Focused Exam Completed? No (Vince JOE,Darius) Progress Differential Diagnoses I considered the following diagnoses in my evaluation of the patient: [Pulmonary embolus, muscle strain, pneumonia, acute coronary syndrome, pulmonary infarct, aortic dissection, hypothyroidism, lung metastasis] Plan of Care: Orders Procedure Date/time Status PARTIAL THROMBOPLASTIN TIME 10/11 0900 Complete CBC WITHOUT DIFFERENTIAL 10/11 0600 Complete Heparin Drip- AFIB/FLUTTER/PE/ 10/11 0102 Active Vital Signs 10/11 0043 Active Teach/Educate 10/11 0043 Active Pain Treatment and Response 10/11 0043 Active Nutritional Intake, Monitor 10/11 0043 Active Isolation 10/11 0043 Active Patient Care Conference 10/11 0043 Active Activity/Ambulation 10/11 0043 Active US-EXT BILAT VENOUS DOPPLER 10/11 UNK Active Lab Add-on Test 10/11 UNK Active ECHOCARDIOGRAM 10/11 UNK Active Heart Healthy Diet 10/10 D Active TROPONIN LEVEL 10/10 2300 Complete EKG 10/10 2300 Active PARTIAL THROMBOPLASTIN TIME 10/10 2107 Complete PROTHROMBIN TIME 10/10 2107 Complete TROPONIN LEVEL 10/10 1800 Complete EKG 10/10 1800 Active ED Holding Orders 10/10 1452 Active Admit to inpatient 10/10 1452 Active Add-on Test (ER Only) 10/10 1444 Active Pathway - chart 10/10 1435 Active House Staff 10/10 1435 Active Patient Data 10/10 1435 Active Code Status 10/10 1435 Active Add-on Test (ER Only) 10/10 1421 Active EKG 10/10 1412 Active Patient Data 10/10 1411 Active BLOOD CULTURE 10/10 1357 Active Add-on Test (ER Only) 10/10 1345 Active Intake & Output 10/10 1131 Active THYROID STIMULATING HORMONE 10/10 1121 Complete TOTAL TRIODOTHYROXINE 10/10 1121 Complete PARTIAL THROMBOPLASTIN TIME 10/10 1121 Complete PROTHROMBIN TIME 10/10 1121 Complete FREE T4 10/10 1121 Complete VTE Mechanical Prophylaxis 10/10 UNK Active Telemetry/Mail Censor 10/10 UNK Active Current Medications Sig/Niya Start time Last Medication Dose Stop Time Status Admin Hydromorphone HCl 0.2 MG Q4P PRN 10/10 2200 AC 10/11 (Dilaudid) 0623 Liothyronine Sodium 25 MCG BID 10/10 2200 AC 10/11 (Cytomel 25 Mcg) 0911 Oxycodone HCl 10 MG Q4-6 PRN PRN 10/10 1545 AC 10/11 (Roxicodone) 0911 Oxycodone HCl 5 MG Q4-6 PRN PRN 10/10 1500 AC 10/10 (Roxicodone) 1931 Calcium/Vitamin D 500 MG BID 10/10 1454 AC 10/11 (Oscal-D 500MG 0911 (Osyter Shell)) Heparin Sodium 25,000 UNIT Q24H 10/10 1400 AC 10/10 (Porcine) 10/11 1359 1445 (Heparin) Sodium Chloride 500 ML Laboratory Tests 10/11/17 0900: APTT 76 H 10/11/17 0624: CBC w Diff NO MAN DIFF REQ, RBC 3.73 L, MCV 90.0, MCH 30.6, MCHC 34.0, RDW 12.8 , MPV 8.5, Gran % 71.8, Lymphocytes % 18.5 L, Monocytes % 8.5, Eosinophils % 0.8, Basophils % 0.4, Absolute Granulocytes 9.0 H, Absolute Lymphocytes 2.3, Absolute Monocytes 1.1 H, Absolute Eosinophils 0.1, Absolute Basophils 0 10/10/17 2305: Troponin I < 0.01 10/10/170: PT 12.7 H, INR 1.21 H, APTT 85 H 10/10/178: Urine Color STRAW, Urine Clarity CLEAR, Urine pH 6.0, Ur Specific [place] 1.010, Urine Protein NEG, Urine Ketones NEG, Urine Nitrite NEG, Urine Bilirubin NEG, Urine Urobilinogen 0.2, Ur Leukocyte Esterase NEG, Ur Microscopic SEDIMENT EXAMINED, Urine RBC RARE, Urine WBC RARE, Ur Epithelial Cells FEW, Urine Bacteria RARE H, Urine Mucus RARE, Urine Hemoglobin TRACE-INTACT, Urine Glucose NEG 10/10/17 1754: Troponin I < 0.01 Microbiology 10/10 1450 BLOOD: Blood Culture - RECD 10/10 1435 BLOOD: Blood Culture - RECD Patient seen and evaluated. She currently is tachycardic to 1 teens. She is reporting pain in her right upper back right flank and right chest. She has 2 surgeries in the past 2 weeks and his history of thyroid cancer. She had a CTA to rule out PE. She additionally has pain in her right upper quadrant we'll get a CT of her abdomen. Also check basic blood work. Patient medicated with Toradol. Radiologist called saying the patient has a right-sided PE. Troponin is negative no signs of right heart strain. No pneumonia. EKG shows nonspecific T -wave ABN in the inferior leads. Troponin is negative. Case was discussed with patient's urine nose and throat doctor that did the surgery Dr. CEULLAR. She requested the patient be covered with antibiotics for pneumonia. Patient will be heparinized and admitted to the hospital. Patient is still reporting significant pain in her chest and is in some distress after finding and she has a PE. She WAs medicated with IV Dilaudid. A repeat EKG was done when patient started reporting worsening pain but it was unchanged. Fluids ordered thyroid function test and on. Patient will be admitted to telemetry due to PE with tachycardia. Case discussed with Dr. Carrillo she agrees. Diagnostic Imaging: Viewed by Me: CT Scan. Discussed w/RAD: CT Scan. Radiology Impression: PATIENT: RAÚL FUENTES PRESENT AGE: 52 PATIENT ACCOUNT NO: [id number] : 65 LOCATION: [facility] ORDERING PHYSICIAN: Darius JOE SERVICE DATE: 10/10/17 EXAM TYPE: CAT - CT ABD & PELVIS W IV CONTRAST; CTA CHEST-PULMONARY EMBOLISM EXAMINATION: CHEST CT ANGIOGRAPHY CT ABDOMEN AND PELVIS WITH CONTRAST CLINICAL INFORMATION: Chest pain. Cough. Recent surgery. Right upper quadrant abdominal pain and right flank pain for one day. COMPARISON: None. TECHNIQUE: A few noncontrast axial images through the chest were obtained for contrast localization purpose. Following intravenous administration of 95 mL of Optiray 320, CT angiography of the chest was acquired as per CT pulmonary angiography protocol. Following acquisition of chest CTA, multidetector volumetric CT imaging of the abdomen and pelvis was acquired. Postprocessing is performed at a dedicated workstation. Multiplanar reformatted and MIPS images are submitted for review. DLP: 667.77 mGy-cm. FINDINGS: CHEST: There is optimal opacification of the pulmonary arterial tree. Filling defects are noted in the right lower lobe segmental and subsegmental branches consistent with pulmonary emboli. Filling defect is also noted in the distal aspect of the right lower lobe lobar branch. No additional pulmonary emboli are noted. The central pulmonary arteries are normal in caliber and well opacified. The aorta is normal in caliber and well opacified without evidence of dissection or aneurysm. Cardiac size is normal. Ground-glass changes are noted in the right lung base in the lower lobe posteriorly; given the presence of pulmonary emboli in this region findings may raise a possibility of pulmonary infarction. There are associated dependent and nondependent linear bands of opacities suggesting atelectasis at the right lung base. Minimal dependent atelectasis is noted at the left lung base. The remainder of the lungs are essentially clear without evidence of discrete nodules or masses. Trachea and central bronchi are well patent. Trace right pleural effusion. No left pleural effusion. There is no evidence of axillary, mediastinal or hilar adenopathy. Reportedly, the patient had thyroid surgery approximately 2 weeks ago. Hypodense soft tissue in the thyroid bed with a punctate air focus in the left thyroid fossa are noted, probably postsurgical change, correlate with nature of surgery. Patient has a history of metastatic cancer. No acute or suspicious osseous lesion is noted. ABDOMEN AND PELVIS: The liver, gallbladder, biliary tree, adrenal glands, pancreas, and spleen are unremarkable. The kidneys are normal in size, shape and attenuation. There is symmetrical enhancement of the kidneys. No radiopaque urinary tract calculi, hydroureteronephrosis or perinephric stranding. A partially exophytic cyst is noted from the posteromedial aspect of the left mid kidney measuring 1.7 cm. The stomach and small bowel are not dilated. An appendix is not clearly identified, however, there are no inflammatory changes in the expected location of the appendix. The colon is normal in caliber. No evidence of colonic wall thickening or pericolic fat stranding. Moderate volume stool is noted in the colon. No free intraperitoneal air or fluid. No pathologically enlarged lymph nodes are noted. The vasculature is unremarkable. No significant abdominal wall hernia. The uterus is not seen, likely surgically absent. The right adnexa is unremarkable. A small hypodense lesion is noted in the left adnexa measuring 1.3 cm (series 6 image 532), likely representing a small cyst, however, consider pelvic ultrasound correlation. The urinary bladder is significantly decompressed and therefore not optimally evaluated. There is no evidence of acute or suspicious osseous abnormality in the abdomen and pelvis. Minimal degenerative changes of the lumbar spine are noted. IMPRESSION: 1. Evidence of right lower lobe pulmonary emboli involving multiple segmental and subsegmental branches. Ground-glass opacification in the right lung base in the lower lobe is nonspecific. In the setting of pulmonary emboli in the region, the possibility of a pulmonary infarction here is raised. Additional subsegmental atelectasis in the right lung base. Trace right pleural effusion. 2. No acute abnormality in the abdomen and pelvis. 3. Hypodense soft tissue fullness in the thyroid region with a punctate focus in the left thyroid region likely reflects a postsurgical change with fluid collection, correlate with nature of surgery. This critical result was discussed with TATYANA Akhtar at 1:45 p.m. on 10/10/2017 and it was ascertained that the content and urgency of the report was understood at the time of direct communication. DICTATED BY: Juan ELDRIDGE,Han DATE/TIME DICTATED:10/10/171334 CAMERA SUPERVISOR:AYAAN DATE/TIME TRANSCRIBED:10/10/171334 Initial ED EKG: sinus tach, rates 112, nonspecific T-wave abnormalities inferior leads Repeat EKG: unchanged (SINUS TACH) (Darius Diaz) Departure Departure Disposition: STILL A PATIENT Condition: Guarded Clinical Impression Primary Impression: Pulmonary embolism and infarction Referrals: Graham Dunn MD (PCP/Family) Departure Forms: Customer Survey General Discharge Information Admission Note Spoke With: Bharath ELDRIDGE,Neeta Documentation of Exam: Documentation of any treatments & extenuating circumstances including Concerns Regarding Discharge (functional status, medication knowledge or non-compliance, living conditions, etc.) that warrant an admission rather than observation: [IV heparin, pulmonology consult, IV fluids, coagulopathy workup, telemetry, monitoring vital signs, IV pain meds] (Darius Diaz) PA/CLIENT SERVICES REPRESENTATIVE Co-Sign Statement Statement: ED Attending supervision documentation- [X] I saw and evaluated the patient. I have also reviewed all the pertinent lab results and diagnostic results. I agree with the findings and the plan of care as documented in the PA's/CLIENT SERVICES REPRESENTATIVE's documentation. [X] I have reviewed the ED Record and agree with the PA's/CLIENT SERVICES REPRESENTATIVE's documentation. [] Additions or exceptions (if any) to the PAs/CLIENT SERVICES REPRESENTATIVE's note and plan are summarized below: [] (Gerardo ELDRIDGE,Zohra) Critical Care Note Critical Care Note Critical Care Time: 30-74 min (Darius Diaz)
[2017-10-10 11:32] LABS: ABSOLUTE BASOPHIL COUNT 0 /CUMM (0.0-0.2); ABSOLUTE EOSINOPHIL COUNT 0.1 /CUMM (0.0-0.7); ABSOLUTE GRANULOCYTE CT 12.2 /CUMM (1.4-6.5); ABSOLUTE LYMPH COUNT 1.6 /CUMM (1.2-3.4); ABSOLUTE MONOCYTE COUNT 1.3 /CUMM (0.10-0.60); BASOPHIL % 0.2 % (0.0-2.0); EOSINOPHIL % 0.3 % (0-5); GRANULOCYTE % 80.1 % (42.2-75.2); MEAN CORPUSCULAR HGB 30.4 PG (27.0-31.0); MEAN CORPUSCULAR HGB CONC 34.2 G/DL (33.0-37.0); MEAN CORPUSCULAR VOLUME 88.9 FL (81.0-99.0); MEAN PLATELET VOLUME 7.3 FL (7.4-10.4); PLATELET COUNT 252 /CUMM (130-400); RED BLOOD CELL CT 4.52 /CUMM (4.20-5.40); WHITE BLOOD CELL COUNT 15.3 /CUMM (4.8-10.8)
[2017-10-10 11:34] LABS: HEMATOCRIT 40.2 % (37-47)
[2017-10-10 14:01] LABS: PT 11.7 SEC (9.4-12.5); PTT 30 SEC (25-37)
--- NOTE | 2017-10-10 14:17 | History & Physical ---
Yann Smith 10/10/17 1417: General Information and HPI MD Statement: I have seen and personally examined RAÚL THIBODEAUX and documented this H&P. The patient is a 52 year old F who presented with a patient stated chief complaint of right-sided abdominal pain and SOB. Source of Information: patient, family Exam Limitations: language barrier History of Present Illness: Ms. Thibodeaux is a 52-year-old female with a past medical history significant for thyroid cancer status post thyroidectomy SIB Dr. Boyd to the ED with shortness of breath and right-sided abdominal pain for 1 day. Patient reports she had her thyroid surgery last . She also reports she had her lymph nodes removed 3 weeks ago without complications. Yesterday evening she began to have right- sided shoulder blade pain that radiated to the chest. She describes her pain as intermittent sharp CP 10/10 in severity with movement. When she is sitting up she feels as though someone is sitting on her chest. She denies any previous episodes, fever, chills, nausea, vomiting, sick contacts, recent travel, diarrhea or urinary symptoms. She has not received her flu vaccination this season. Allergies/Medications Home Med list Acetaminophen (Tylenol) 325 MG TABLET 325 MG PO Q4-6 PRN PRN pain control available over the counter Calcium Carbonate/Vitamin D3 (Os-Yaakov 500+D3 Caplet) 500 MG-600 TABLET 500 MG PO BID s/p total thyroidectomy continue as per Estrogenic Subst Conj (Premarin) 0.625 MG TABLET 1 TAB PO DAILY HRT (Reported ) Liothyronine Sodium (Cytomel) 25 MCG TABLET 30 MCG PO BID s/p total thyroidectomy as per Multiple Vitamin (Multivitamins) 1 EACH TABLET 1 TAB PO DAILY supplement ( Reported) Oxycodone HCl 5 MG TABLET 1-2 TAB PO Q4-6 PRN PRN pain control tylenol may be used alternatively or in combination Past History Travel History Traveled to [place] past 21 day No Medical History Neurological: NONE Cardiovascular: NONE Respiratory: NONE Gastrointestinal: NONE Hepatic: NONE Renal: NONE Psychiatric: NONE Endocrine: NONE Blood Disorders: NONE Cancer(s): thyroid cancer SEXUAL ASSAULT COUNSELOR/Reproductive: NONE History of MRSA: No History of VRE: No History of CDIFF: No Surgical History Surgical History: thyroidectomy, lymphadenectomy Past Family/Social History Psychosocial History Services at Home: None Smoking Status: Never Smoked ETOH Use: denies use Illicit Drug Use: denies illicit drug use Review of Systems Review of Systems Constitutional: Reports: see HPI. Exam & Diagnostic Data Last 24 Hrs of Vital Signs/I&O Vital Signs Date Time Temp Pulse Resp B/P B/P Pulse O2 O2 Flow FiO2 Mean Ox Delivery Rate 10/10 1914 97.8 105 22 120/62 100 Nasal 2.5L Cannula 10/10 1513 97 Nasal 2.0L Cannula 10/10 1420 125 22 147/93 97 Room Air 10/10 1403 99.0 124 18 144/89 98 Room Air 10/10 1113 98.8 116 18 136/91 98 Room Air Intake & Output 10/10 1600 10/10 0800 10/10 0000 Intake Total 0 Output Total Balance 0 Intake, Oral 0 Patient 138 lb Weight Weight Reported by Patient Measurement Method Physical Exam General Appearance Alert, Oriented X3, Cooperative HEENT Atraumatic, PERRLA, EOMI, Mucous Membr. moist/pink Cardiovascular Regular Rate, Normal S1, Normal S2, No Murmurs, Chest wall tenderness Lungs Clear to Auscultation, Normal Air Movement Abdomen RUQ tenderness Extremities Motor strength 4/5 throughout Last 24 Hrs of Labs/Kevon: Laboratory Tests 10/10/172109: PT Pending, INR Pending, APTT Pending 10/10/172107: Urine Color Pending, Urine Clarity Pending, Urine pH Pending, Ur Specific [place] Pending, Urine Protein Pending, Urine Ketones Pending, Urine Nitrite Pending, Urine Bilirubin Pending, Urine Urobilinogen Pending, Ur Leukocyte Esterase Pending, Ur Microscopic Pending, Urine Hemoglobin Pending, Urine Glucose Pending 10/10/17 1754: Troponin I < 0.01 10/10/17 1121: Anion Gap 11, Estimated GFR > 60, BUN/Creatinine Ratio 18.0, Glucose 97, Calcium 9.6, Magnesium 2.0, Total Bilirubin 0.5, AST 12 L, ALT 39, Alkaline Phosphatase 88, Troponin I < 0.01, Total Protein 6.8, Albumin 3.9, Globulin 2.9, Albumin/ Globulin Ratio 1.3, TSH < 0.015 L, Free T4 0.58 L, PT 11.7, INR 1.12, APTT 30, D-Dimer High Sensitivty 259 H, CBC w Diff NO MAN DIFF REQ, RBC 4.52, MCV 88.9, MCH 30.4, MCHC 34.2, RDW 13.0, MPV 7.3 L, Gran % 80.1 H, Lymphocytes % 10.7 L , Monocytes % 8.7, Eosinophils % 0.3, Basophils % 0.2, Absolute Granulocytes 12.2 H, Absolute Lymphocytes 1.6, Absolute Monocytes 1.3 H, Absolute Eosinophils 0.1, Absolute Basophils 0 Microbiology 10/10 1450 BLOOD: Blood Culture - RECD 10/10 1435 BLOOD: Blood Culture - RECD Diagnostic Data EKG Results [id number] Other Results CTA CHEST-PULMONARY EMBOLISM IMPRESSION: 1. Evidence of right lower lobe pulmonary emboli involving multiple segmental and subsegmental branches. Ground-glass opacification in the right lung base in the lower lobe is nonspecific. In the setting of pulmonary emboli in the region, the possibility of a pulmonary infarction here is raised. Additional subsegmental atelectasis in the right lung base. Trace right pleural effusion. 2. No acute abnormality in the abdomen and pelvis. 3. Hypodense soft tissue fullness in the thyroid region with a punctate focus in the left thyroid region likely reflects a postsurgical change with fluid collection, correlate with nature of surgery. Assessment/Plan Assessment: Ms. Thibodeaux is a 52-year-old female with a past medical history significant for thyroid cancer status post thyroidectomy presents to the ED with shortness of breath and right-sided abdominal pain Pulmonary embolism most likely 2/2 recent surgery, immobility due to pain, and estrogen use CTA showed right lower lobe pulmonary emboli involving multiple segmental and subsegmental branches. Non-specific ground-glass opacification lung bases. * Admit to telemetry * Serial TROP/ECG to r/o ACS * IV Heparin * PT/INR, PTT * ECHO to r/o SHD and/or valvular abnormalities * Cardiology recommendations appreciated Leukocytosis most likely 2/2 to PE * Monitor white count R-sided CP/Abdominal pain * Oxycodone q4-6 Diet: Heart healthy DVT ppx: Heparin Code: FULL Core Measures/Misc (05/13) Acute Coronary Syndrome ACS Diagnosis: No Congestive Heart Failure Congestive Heart Failure Diagnosis No Cerebrovascular Accident CVA/TIA Diagnosis: No VTE (View Protocol) VTE Risk Factors Cancer/chemo/othr therapy No Mechanical VTE Prophylaxis d/t N/A MechProphylax Ordered No VTE Pharm Prophylaxis d/t NA PharmProphylax ordered Sepsis (View protocol) Sepsis Present: No Ariel Jolley MD 10/10/17 1445: General Information and HPI Allergies/Medications Allergies: Coded Allergies: morphine (Intermediate, VOMITING 10/10/17) Exam & Diagnostic Data Last 24 Hrs of Vital Signs/I&O Vital Signs Date Time Temp Pulse Resp B/P B/P Pulse O2 O2 Flow FiO2 Mean Ox Delivery Rate 10/10 1513 97 Nasal 2.0L Cannula 10/10 1420 125 22 147/93 97 Room Air 10/10 1403 99.0 124 18 144/89 98 Room Air 10/10 1113 98.8 116 18 136/91 98 Room Air Intake & Output 10/10 1600 10/10 0800 10/10 0000 Intake Total 0 Output Total Balance 0 Intake, Oral 0 Patient 62.596 kg Weight Weight Reported by Patient Measurement Method Assessment/Plan As Ranked By This Provider Problem List: 1. S/P total thyroidectomy 2. Pulmonary embolism and infarction 3. Papillary thyroid carcinoma Resident Review Statement Resident Statement: examined this patient, discussed with internet webmaster, agreed with internet webmaster Other Findings: Patient is 52-year-old female she had history of total thyroidectomy with NIMS monitor on 10/04/2017 for papillary thyroid cancer, metastasize to left sided lymph nodes in the neck.She presented with sudden onset of right-sided chest and abdominal pain along with shortness of the breath. ED course-vital signs at the time of presentation temperature 98.8, pulse 116, respiratory rate 18, blood pressure 136/91, SPO2 98% on room air. Blood workup showed WBC 15.3, hemoglobin 13.7, hematocrit 40.2, granulocyte 80.1, sodium 142, potassium 3.8, carbon dioxide 27, anion gap 11, BUN 9, creatinine 0.5, GFR more than 60, glucose 97, calcium 9.6, magnesium 2.0, total bilirubin 0.5, AST 12, ALT 39, alkaline phosphatase 88, troponin less than 0.01, albumin 3.9, PT/INR 11.7/1.12, APTT 30, d-dimer 259. CTA -right lower lobe pulmonary emboli involving multiple segmental and subsegmental branches, with pulmonary infarction and atelectasis.Trace right pleural effusion. On Physical exam -patient was conscious cooperative without any distress, skin and mucous membrane were well-hydrated, neck stitch area and surgical area was nontender, erythematous, Steri strips were there.No any cervical lymphadenopathy , lungs were clear with mild basilar crackles on right base, heart s1s2 normal, abdomen soft no tenderness, peripheral pulses normal, no calf tenderness. Assessment and plan Patient presented with chief complaints of sudden onset of chest pain with a history of thyroid cancer and surgery. On examination there was right basilar crackles and CTA confirmed the presence of PE. EKG was also showing evidence of tachycardia and S1, QIII and TIII syndrome.We will keep the patient on heparin drip because a benefit as we can control the bleeding at the site of the surgery. We will also take endocrinologic consultation for hypothyroidism, adjustment of the dose of liothyroxine. Pulmonary embolism probably secondary to post surgery, manipulation during the surgery, hypercoagulable state, on estrogen preparation - * We will admit the patient to telemetry floor * We will do serial troponins and EKG * We will follow cardiology consult and echocardiogram for evaluate for right ventricular strain * Patient was already started on heparin drip * Watch for bleeding * We will check for platelet count. * We will follow the ENT recommendation. Hypothyroidism - * Patient is on levothyroxine 25 mcg twice daily. We will confirm the dose from [facility]. * We will follow Dr Guzman recommendation. Moderate amount of stool in colon * Bowel regimen Leucocytosis * Probably reactionary. Code status - FC DVT prophylaxis - Heparin Diet - heart healthy diet Joe Lofton MD 10/10/17 3419: Attending Review Statement Attending Statement Attending Statement: examined this patient, discuss w/resident/PA/STICKER HAND, agreed w/resident/PA/STICKER HAND, discussed with family, reviewed EMR data (avail), reviewed images, amended to note Attending Assessment/Plan: The patient is a 52 yo female with h/o recently diagnosed metastatic papillary thyroid carcinoma (needle biopsy 08/12/17), status post recent surgeries x 2 ( left neck dissection 09/06/17 and thyroidectomy 10/04/17) who presented in the ED the day of admission with onset of dyspnea and pleuritic right back pain along with some abdominal discomfort. In the ED underwent CTPA that was c/w pulmonary emboli. She denied any lower extremity swelling/pain. She has also been on Premarin therapy x 1 year. She has been taking Cytomel bid, however has not yet seen an shoe handler. She was noted to be tachycardic rate in 120's. Physical Exam: VS: T 98.8, P 124, R 22, BP 147/93, PO 98% RA HEENT: eyes- PERRLA, EOMI hammad- moist mucosa Neck: s/p thyroidectomy (bandage in place is dry), no significant swelling or bruising Chest: clear with diminished BS at bases Cor: tachy, reg, nl S1, S2 w/o murm Abd: BS+, soft, NT, - HSM Ext: no edema/tenderness, no cords, pulses 2+ Neuro: alert & oriented x 3, non-focal exam Labs/Tests- as above Impression/Plan: #Acute Pulmonary Emboli- patient with multiple risk factors including relative immobility secondary to 2 recent surgeries, malignancy (thyroid ca) and hormonal therapy. Is tachycardic due to embolism and anxiety. No signs of right heart strain on EKG or CTA. Plan: Will admit to telemetry service and monitor HR during acute Rx. ECHO to evaluate right heart strain. Heparin drip initiated in ED. Will need to decide on oral agent assuming no bleeding at surgical site (?Apixaban). Follow pulse ox and HR, etc. Hold Premarin. Venous duplex LE- evaluate for DVT. #Chest Pain- due to pulmonary emboli. Received some Dilaudid in ED with some relief. Plan: Pain pathway. Check troponins. #Metastatic Papillary Thyroid CA- s/p left neck dissection (15 nodes positive) and subsequent thyroidectomy. Plan: Will need eventual I-123 WB scan/I-131 Therapy. Endocrinology Consult- Dr. Machado/[facility]. #Hypothyroid- s/p thyroidectomy. On Cytomel as above. Plan: Continue Cytomel- Endocrinology to adjust dose. #Leukocytosis- no clinical evidence of infection. ? secondary to stress. Plan: Follow-up WBC. #Abdominal Pain- non-specific. No pathology on CT. Plan: Will follow pain symptoms.
--- NOTE | 2017-10-10 14:26 | CT SCAN REPORT ---
EXAMINATION: CHEST CT ANGIOGRAPHY CT ABDOMEN AND PELVIS WITH CONTRAST CLINICAL INFORMATION: Chest pain. Cough. Recent surgery. Right upper quadrant abdominal pain and right flank pain for one day. COMPARISON: None. TECHNIQUE: A few noncontrast axial images through the chest were obtained for contrast localization purpose. Following intravenous administration of 95 mL of Optiray 320, CT angiography of the chest was acquired as per CT pulmonary angiography protocol. Following acquisition of chest CTA, multidetector volumetric CT imaging of the abdomen and pelvis was acquired. Postprocessing is performed at a dedicated workstation. Multiplanar reformatted and MIPS images are submitted for review. DLP: 667.77 mGy-cm. FINDINGS: CHEST: There is optimal opacification of the pulmonary arterial tree. Filling defects are noted in the right lower lobe segmental and subsegmental branches consistent with pulmonary emboli. Filling defect is also noted in the distal aspect of the right lower lobe lobar branch. No additional pulmonary emboli are noted. The central pulmonary arteries are normal in caliber and well opacified. The aorta is normal in caliber and well opacified without evidence of dissection or aneurysm. Cardiac size is normal. Ground-glass changes are noted in the right lung base in the lower lobe posteriorly; given the presence of pulmonary emboli in this region findings may raise a possibility of pulmonary infarction. There are associated dependent and nondependent linear bands of opacities suggesting atelectasis at the right lung base. Minimal dependent atelectasis is noted at the left lung base. The remainder of the lungs are essentially clear without evidence of discrete nodules or masses. Trachea and central bronchi are well patent. Trace right pleural effusion. No left pleural effusion. There is no evidence of axillary, mediastinal or hilar adenopathy. Reportedly, the patient had thyroid surgery approximately 2 weeks ago. Hypodense soft tissue in the thyroid bed with a punctate air focus in the left thyroid fossa are noted, probably postsurgical change, correlate with nature of surgery. Patient has a history of metastatic cancer. No acute or suspicious osseous lesion is noted. ABDOMEN AND PELVIS: The liver, gallbladder, biliary tree, adrenal glands, pancreas, and spleen are unremarkable. The kidneys are normal in size, shape and attenuation. There is symmetrical enhancement of the kidneys. No radiopaque urinary tract calculi, hydroureteronephrosis or perinephric stranding. A partially exophytic cyst is noted from the posteromedial aspect of the left mid kidney measuring 1.7 cm. The stomach and small bowel are not dilated. An appendix is not clearly identified, however, there are no inflammatory changes in the expected location of the appendix. The colon is normal in caliber. No evidence of colonic wall thickening or pericolic fat stranding. Moderate volume stool is noted in the colon. No free intraperitoneal air or fluid. No pathologically enlarged lymph nodes are noted. The vasculature is unremarkable. No significant abdominal wall hernia. The uterus is not seen, likely surgically absent. The right adnexa is unremarkable. A small hypodense lesion is noted in the left adnexa measuring 1.3 cm (series 6 image 532), likely representing a small cyst, however, consider pelvic ultrasound correlation. The urinary bladder is significantly decompressed and therefore not optimally evaluated. There is no evidence of acute or suspicious osseous abnormality in the abdomen and pelvis. Minimal degenerative changes of the lumbar spine are noted. IMPRESSION: 1. Evidence of right lower lobe pulmonary emboli involving multiple segmental and subsegmental branches. Ground-glass opacification in the right lung base in the lower lobe is nonspecific. In the setting of pulmonary emboli in the region, the possibility of a pulmonary infarction here is raised. Additional subsegmental atelectasis in the right lung base. Trace right pleural effusion. 2. No acute abnormality in the abdomen and pelvis. 3. Hypodense soft tissue fullness in the thyroid region with a punctate focus in the left thyroid region likely reflects a postsurgical change with fluid collection, correlate with nature of surgery. This critical result was discussed with TATYANA Akhtar at 1:45 p.m. on 10/10/2017 and it was ascertained that the content and urgency of the report was understood at the time of direct communication.
--- NOTE | 2017-10-10 15:58 | PN- Student ---
Subjective Subjective: *Full H&P* ID: Capri Louis is a 52 y.o. white female, born on [birth year], w/ PMHx of papillary thyroid carcinoma s/p recent thyroidectomy on 10/04/17, who presents to the ED on 10/10/17 for worsening SOB & right sided back, abdomen, & that began last night. CC: Severe pain in her right back/shoulder blade area yesterday that spread to her chest overnight and is making it hard for her to breathe. HPI: Ms. Louis states that she underwent surgery to remove her thyroid last & lymph nodes 3 weeks ago, d/t a recent diagnosis of thyroid cancer that had spread. She reports no complications during or after the procedures, until yesterday evening when she experienced a sudden onset of SOB & sharp pain in the right shoulder blade region of her back, which over night spread to her abdomen, & the right side of her chest. The patient states that she reported these symptoms to Dr. Boyd this morning, during a previously scheduled thyroidectomy f/u appointment, who then prompted her to come to the ED. The patient describes the pain as sharp & constant in nature, although it fluctuates in severity, at the time of admission it she rates it 10/10. She also reports that, when she sits upright, it feels like someone is sitting on her chest, and that taking a deep breath or sitting up also aggrevates her sx's, resulting in increased pain & worsening dyspnea. The patient reports having a fever earlier today and feeling nauseous because of the pain, but denies any cough, sputum production, voming, diarrhea, or urinary symptoms. She also denies any similar episodes in the past as well as any recent travel or sick contacts. The patient does report a recent change in her activity level, stating that she stopped going to the gym over a month ago due to back problems and has mostly been resting or in bed d/t her recent surgeries. 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 She also reports recently finishing a course of antibiotics after her surgery. PMHx: - Metastatic pappillary thyroid cancer s/p total Thyroidectomy - Uterine cysts s/p Hysterectomy at 40 years old - Reccurrent calcified cysts PSHx: - Total thyroidectomy - Lymphadenectomy - Hysterectomy Home medications: - Acetaminophen 325mg Q4-6 PRN - Calcium carbonate/Vitamin D3 500mg BID - Premarin 0.625mg 1 tab/day - Liothyronine Sodium 25mcg BID - Oxycodone HCl 10mg Q4-6 PRN Allergies: - Morphine, causes vomiting FHx: - Father: HTN, DM - Mother: HTN SHx: - Never smoked - Denies alcohol use - Denies illicit drug use - Works as a book keeper - Lives at home with - Has 2 children (22 & 25 years old) - Regular diet ROS: - Chronic sinus congestion No other pertinent findings on ROS, other than Sx's in HPI Objective Objective: Last 24 Hrs of Vital Signs/I&O Vital Signs Date Time Temp Pulse Resp B/P B/P Pulse O2 O2 Flow FiO2 Mean Ox Delivery Rate 10/10 1914 97.8 105 22 120/62 100 Nasal 2.5L Cannula 10/10 1513 97 Nasal 2.0L Cannula 10/10 1420 125 22 147/93 97 Room Air 10/10 1403 99.0 124 18 144/89 98 Room Air 10/10 1113 98.8 116 18 136/91 98 Room Air Intake & Output 10/10 1600 10/10 0800 10/10 0000 Intake Total 0 Output Total Balance 0 Intake, Oral 0 Patient 138 lb Weight Weight Reported by Patient Measurement Method Physical Exam: G/A: Patient is laying in her hospital bed, she is A&Ox3, cooperative, & appears to be in pain and in mild respiratoty distess. HEENT: Mucous membranes are moist & pink, pupils are equally round & reactive to light, no visible signs of scleral icterus or corneal injection. Neck: Surgical dressing clean & intact with no visible drainage, erythema, or swelling. CV: Auscultation reveals normal S1 & S2 w/ no audible murmurs, rubs, or gallops; Radial pulses are 2+ bilaterally, tenderness on palpation of the right sided anterior chest wall. Resp: Auscuslation of posterior chest wall reveals normal breath sounds bilaterally with mild crackles heard at the right lung base. Abdomen: Normal bowel sounds heard throughout, soft to palpation with tenderness in the RUQ. MSK: Some telangiectasias visible in bilateral lower extremites, intact sensation & motor strength throughout. No calf tenderness. Results Results: Laboratory Tests 10/10/172109: PT 12.7 H, INR 1.21 H, APTT 85 H 10/10/172107: Urine Color STRAW, Urine Clarity CLEAR, Urine pH 6.0, Ur Specific [place] 1.010, Urine Protein NEG, Urine Ketones NEG, Urine Nitrite NEG, Urine Bilirubin NEG, Urine Urobilinogen 0.2, Ur Leukocyte Esterase NEG, Ur Microscopic SEDIMENT EXAMINED, Urine RBC RARE, Urine WBC RARE, Ur Epithelial Cells FEW, Urine Bacteria RARE H, Urine Mucus RARE, Urine Hemoglobin TRACE-INTACT, Urine Glucose NEG 10/10/17 1754: Troponin I < 0.01 10/10/17 1121: Anion Gap 11, Estimated GFR > 60, BUN/Creatinine Ratio 18.0, Glucose 97, Calcium 9.6, Magnesium 2.0, Total Bilirubin 0.5, AST 12 L, ALT 39, Alkaline Phosphatase 88, Troponin I < 0.01, Total Protein 6.8, Albumin 3.9, Globulin 2.9, Albumin/ Globulin Ratio 1.3, TSH < 0.015 L, Free T4 0.58 L, Total T3 4.43 H, PT 11.7, INR 1.12, APTT 30, D-Dimer High Sensitivty 259 H, CBC w Diff NO MAN DIFF REQ, RBC 4.52, MCV 88.9, MCH 30.4, MCHC 34.2, RDW 13.0, MPV 7.3 L, Gran % 80.1 H, Lymphocytes % 10.7 L, Monocytes % 8.7, Eosinophils % 0.3, Basophils % 0.2, Absolute Granulocytes 12.2 H, Absolute Lymphocytes 1.6, Absolute Monocytes 1.3 H, Absolute Eosinophils 0.1, Absolute Basophils 0 10/10/17 1100: Ref Lab Test Result Pending Microbiology 10/10 1450 BLOOD: Blood Culture - RES 10/10 1435 BLOOD: Blood Culture - RES EKG: S1Q3T3 CTA: Chest Pulmonary Embolism 1. Evidence of right lower lobe pulmonary emboli involving multiple segmental and subsegmental branches. Ground-glass opacification in the right lung base in the lower lobe is nonspecific. In the setting of pulmonary emboli in the region, the possibility of a pulmonary infarction here is raised. Additional subsegmental atelectasis in the right lung base. Trace right pleural effusion. 2. No acute abnormality in the abdomen and pelvis. 3. Hypodense soft tissue fullness in the thyroid region with a punctate focus in the left thyroid region likely reflects a postsurgical change with fluid collection, correlate with nature of surgery. Assessment/Plan Assessment: Ms. Louis is a 52 y.o female, with PMHx of papillary thyroid carcinoma s/p thyroidectomy last , who presents to the ED with SOB and right sided pleuretic chest pain raidiating to the shoulder blade & abdomen. EKG showed tachycardia & S1Q3T3. CTA showed right lower lobe pulmonary emboli involving multiple segmental and subsegmental branches. The patients SOB, tachycardia, & radiating chest pain are most likely a result of the pulmonary embolism, which itself is most likely secondary to the patients recent surgery with possible confounding effects from her hormone therapy & metastatic cancer contributing to a hypercoaguable state, as well as a recent decrease in ambulation. The patient also had elevated white count for which pulmonary embolism is again a probable cause. Plan: Pulmonary Embolism & resultant pain, tachycardia, & S1Q3T3: - Admit patient to telemotry for HR monitoring - Serial Troponins & EKG to monitor chest pain - Cardiology [facility] & echo for evalulation of right heart strain - Continue Heparin drip & monitor for bleeding, discuss possible oral agents - Discontinue Premarin - [place] doppler of lower extremeties to evaluate for DVT - Manage pain with Dilaudid & Roxicodone as needed - Monitor WBC's for changes in Leukocytosis (no evidence of infection) Metastatic papillary thyroid carcinoma s/p thyroidectomy & Hypothyroidism: - [facility] endocrinology for further management & recommendations - Continue on levothyroxine 25mcg BID, adjust if needed as per endo - Monitor surgical site for irritation, bleeding, & hematomas
[2017-10-10 21:41] LABS: PT 12.7 SEC (9.4-12.5); PTT 85 SEC (25-37)
--- NOTE | 2017-10-10 22:19 | Admission Certification ---
Admission Certification Certification Statement - As attending physician, I certify that at the time of - admission, based on clinical presentation, severity of - symptoms, need for further diagnostic testing and - therapeutic interventions, and risk of adverse outcomes - without in-hospital treatment, in my clinical assessment, - this patient requires an acute hospital stay for a minimum - of two nights or longer. I have also considered psychsocial - factors such as support system, advanced age, financial - issues, cognitive issues, and failed out-patient treatments, - past re-admission history, safety of patient, and lack of - compliance as applicable. Specific rationale supporting this admission is: The patient presents with acute bilateral pulmonary emboli, tachycardia, chest pain secondary to emboli. S/P recent surgeries for metastataic papillary thyroid ca. Needs admit to telemetry, IV heparin, venous US LE, pain control, close hemodynamic and oxygen monitoring.
[2017-10-11 06:45] VITALS: BP 130/80
--- NOTE | 2017-10-11 07:31 | PN- Housestaff ---
Yann Smith 10/11/17 0731: Subjective Follow-up For: Acute PE Subjective: Patient reports no complaints or events overnight. Review of Systems Constitutional: Reports: see HPI. Objective Last 24 Hrs of Vital Signs/I&O Vital Signs Date Time Temp Pulse Resp B/P B/P Pulse O2 O2 Flow FiO2 Mean Ox Delivery Rate 10/11 2244 98.6 86 18 120/78 96 Room Air 10/11 1422 98.6 90 18 122/82 96 Room Air 10/11 0645 99.1 108 12 130/80 94 Room Air Intake & Output 10/12 0800 10/12 0000 10/11 1600 Intake Total 1020 Output Total Balance 1020 Intake, IV 160 Intake, Oral 860 Physical Exam General Appearance: Oriented X3, Cooperative, Lethargic Neck: Dressing intact without warmth or drainage Cardiovascular: Regular Rate, Normal S1, Normal S2 Lungs: Clear to Auscultation, Normal Air Movement Abdomen: Normal Bowel Sounds, Soft, No Tenderness Extremities: No Edema Current Medications: Current Medications Sig/[place] Start time Last Medication Dose Route Stop Time Status Admin Acetaminophen 650 MG ONCE ONE 10/11 1745 DC 10/11 PO 10/11 1746 1750 Calcium/Vitamin D 500 MG BID 10/10 1454 AC 10/11 PO 2129 Heparin Sodium 25,000 UNIT Q24H / 1500 AC 10/11 (Porcine) IV 1500 Sodium Chloride 500 ML Heparin Sodium 25,000 UNIT Q24H / 1400 DC 10/10 (Porcine) IV 10/11 1359 1445 Sodium Chloride 500 ML Hydromorphone HCl 0.2 MG Q4P PRN 10/10 2200 AC 10/11 IV 0623 Liothyronine Sodium 25 MCG BID 10/10 2200 AC 10/11 PO 2129 Ondansetron HCl 4 MG ONCE ONE 10/11 0630 DC 10/11 IV 10/11 0631 0623 Oxycodone HCl 10 MG Q4-6 PRN PRN 10/10 1545 AC 10/11 PO 1452 Oxycodone HCl 5 MG Q4-6 PRN PRN / 1500 AC 10/10 PO 1931 Patient Medication 1 ED ONE ONE 10/11 1415 DC 10/11 Teaching ED 10/11 1416 1457 Patient Medication 1 ED ONE ONE 10/11 1145 DC 10/11 Teaching ED 10/11 1146 1248 Last 24 Hrs of Lab/K[place] Results Last 24 Hrs of Labs/Mics: Laboratory Tests 10/11/17 2120: APTT 69 H 10/11/17 0900: APTT 76 H 10/11/17 0624: CBC w Diff NO MAN DIFF REQ, RBC 3.73 L, MCV 90.0, MCH 30.6, MCHC 34.0, RDW 12.8 , MPV 8.5, Gran % 71.8, Lymphocytes % 18.5 L, Monocytes % 8.5, Eosinophils % 0.8, Basophils % 0.4, Absolute Granulocytes 9.0 H, Absolute Lymphocytes 2.3, Absolute Monocytes 1.1 H, Absolute Eosinophils 0.1, Absolute Basophils 0 Assessment/Plan Assessment: Ms. Thibodeaux is a 52-year-old female with a past medical history significant for thyroid cancer status post thyroidectomy presents to the ED with shortness of breath and right-sided abdominal pain Pulmonary embolism most likely 2/2 recent surgery, immobility due to pain, and estrogen use CTA showed right lower lobe pulmonary emboli involving multiple segmental and subsegmental branches. Non-specific ground-glass opacification lung bases. BLE doppler negative for DVT * Continue IV Heparin * Await ECHO results to r/o SHD and/or valvular abnormalities * Cardiology recommendations appreciated * Hold Premarin Leukocytosis most likely 2/2 to PE * Monitor white count R-sided Abdominal pain * Oxycodone q4-6 Diet: Heart healthy DVT ppx: Heparin Code: FULL Problem List: 1. Pulmonary embolism and infarction 2. S/P total thyroidectomy Pain Ratin Pain Location: Abdomen Pain Goal: Pain 4 or less Pain Plan: Oxycodone Tomorrow's Labs & Rationales: BEP CBC Joe Lofton MD 10/11/172054: Attending MD Review Statement Attending Statement Attending MD Statement: examined this patient, discuss w/resident/PA/ART GLASS SETTER, agreed w/resident/PA/ART GLASS SETTER, discussed with family, reviewed EMR data (avail), discussed with nursing, discussed with case mgmt, reviewed images, amended to note Attending Assessment/Plan: The patient was seen and discussed with house staff, patient, family, & ENT (Dr. Boyd). Agree with plan of care. Patient with decreased HR and pain today. Venous duplex LE negative for clot. Await results of ECHO. No bleeding at surgical sites. Will continue heparin today and begin Apixaban tomorrow. Cytomel as per Endocrinology. Will attempt to transition to po pain medications.
--- NOTE | 2017-10-11 07:47 | Cons- Endocrinology ---
General Information and HPI Consulting Request Date of Consult: 10/11/17 Requested By: MEDICAL TEAM Reason for Consult: papillary cancer of thyroid and supressed TSH Source of Information: patient, old records Exam Limitations: no limitations History of Present Illness: This 52-year-old woman presented with a mass in her left neck. The patient underwent a left neck dissection and 15 lymph nodes were removed. 4 were positive for metastatic papillary thyroid carcinoma. The patient then underwent on October 04, 2017 a total thyroidectomy and central neck exploration. The final pathology is still pending. She was taking Cytomel at home. The patient now presents with chest pain and tachycardia. She was found to have pulmonary emboli. She is on heparin. She has never had any venous thrombosis or pulmonary emboli in the past. Her labs when she presented show a TSH of less than 0.015 and her free T4 of 0.58. The patient did have a tachycardia. The patient was on liothyronine at home. Allergies/Medications Allergies: Coded Allergies: morphine (Intermediate, VOMITING 10/10/17) Home Med List: Acetaminophen (Tylenol) 325 MG TABLET 325 MG PO Q4-6 PRN PRN pain control available over the counter Apixaban (Eliquis) 5 MG TABLET 10 MG PO BID PULMONARY EMBOLISM Take 10 mg (2 tabs) twice daily for 7 days then 5 mg (1 tab) twice daiy thereafter Calcium Carbonate/Vitamin D3 (Os-Yaakov 500+D3 Caplet) 500 MG-600 TABLET 500 MG PO BID s/p total thyroidectomy continue as per Liothyronine Sodium (Cytomel) 25 MCG TABLET 30 MCG PO BID s/p total thyroidectomy as per Multiple Vitamin (Multivitamins) 1 EACH TABLET 1 TAB PO DAILY supplement ( Reported) Oxycodone HCl 5 MG TABLET 1-2 TAB PO Q4-6 PRN PRN pain control tylenol may be used alternatively or in combination Review of Systems Review of Systems Cardiovascular: Reports: chest pain. Respiratory: Reports: short of breath. GI: Denies: nausea, vomiting. Past History Travel History Traveled to [place] past 21 day No Medical History Blood Transfusion Hx: No Neurological: NONE EENT: THYROIDECTOMY Cardiovascular: NONE Respiratory: NONE Gastrointestinal: NONE Hepatic: NONE Renal: NONE Musculoskeletal: NONE Psychiatric: NONE Endocrine: NONE Blood Disorders: NONE Cancer(s): thyroid cancer REPRODUCTIVE ENDOCRINOLOGIST/Reproductive: NONE Surgical History Surgical History: thyroidectomy, lymphadenectomy Psychosocial History Where Do You Live? Home Services at Home: None Smoking Status: Never Smoked ETOH Use: denies use Illicit Drug Use: denies illicit drug use Exam & Diagnostic Data Last 24 Hrs of Vital Signs/I&O Vital Signs Date Time Temp Pulse Resp B/P B/P Pulse O2 O2 Flow FiO2 Mean Ox Delivery Rate 10/11 0545 99.1 108 12 130/80 94 Room Air 10/10 2229 Room Air 10/10 2123 98.0 118 20 128/83 97 Room Air 10/104 97.8 105 22 120/62 100 Nasal 2.5L Cannula 10/10 1513 97 Nasal 2.0L Cannula 10/10 1420 125 22 147/93 97 Room Air 10/10 1403 99.0 124 18 144/89 98 Room Air 10/10 1113 98.8 116 18 136/91 98 Room Air Intake & Output 10/11 0800 10/11 0000 10/10 1600 Intake Total 195 0 Output Total 450 Balance -255 0 Intake, IV 195 Intake, Oral 0 Output, Urine 450 Patient 136 lb 138 lb Weight Weight Bed scale Reported by Patient Measurement Method Vital Signs Date Time Temp Pulse Resp B/P B/P Pulse O2 O2 Flow FiO2 Mean Ox Delivery Rate 10/11 0545 99.1 108 12 130/80 94 Room Air 10/10 2229 Room Air 10/10 2123 98.0 118 20 128/83 97 Room Air 10/104 97.8 105 22 120/62 100 Nasal 2.5L Cannula 10/10 1513 97 Nasal 2.0L Cannula 10/10 1420 125 22 147/93 97 Room Air 10/10 1403 99.0 124 18 144/89 98 Room Air 10/10 1113 98.8 116 18 136/91 98 Room Air Intake & Output 10/11 0800 10/11 0000 10/10 1600 Intake Total 195 0 Output Total 450 Balance -255 0 Intake, IV 195 Intake, Oral 0 Output, Urine 450 Patient 136 lb 138 lb Weight Weight Bed scale Reported by Patient Measurement Method Labs/[place] Results: Laboratory Tests 10/11 10/10 10/10 0624 2305 2110 Chemistry Troponin I (< 0.11 ng/ml) < 0.01 Coagulation PT (9.4 - 12.5 SEC) 12.7 H INR (0.90 - 1.19) 1.21 H APTT (25 - 37 SEC) 85 H Hematology CBC w Diff Pending WBC Pending RBC Pending Hgb Pending Hct Pending MCV Pending MCH Pending MCHC Pending RDW Pending Plt Count Pending MPV Pending 10/10 10/10 2108 1754 Chemistry Troponin I (< 0.11 ng/ml) < 0.01 Urines Urine Color (YEL,AMB,STR) STRAW Urine Clarity (CLEAR) CLEAR Urine pH (5.0 - 8.0) 6.0 Ur Specific [place] (1.001 - 1.035) 1.010 Urine Protein (NEG,<30 MG/DL) NEG Urine Ketones (NEG) NEG Urine Nitrite (NEG) NEG Urine Bilirubin (NEG) NEG Urine Urobilinogen (0.1 - 1.0 EU/dl) 0.2 Ur Leukocyte Esterase (NEG) NEG Ur Microscopic SEDIMENT EXAMINED Urine RBC (0 - 5 /HPF) RARE Urine WBC (0 - 2 /HPF) RARE Ur Epithelial Cells (NONE,FEW) FEW Urine Bacteria (NEG/NONE) RARE H Urine Mucus (FEW,NONE) RARE Urine Hemoglobin (NEG) TRACE-INTACT Urine Glucose (N MG/DL) NEG 10/10 1121 Chemistry Sodium (137 - 145 mmol/L) 142 Potassium (3.5 - 5.1 mmol/L) 3.8 Chloride (98 - 107 mmol/L) 105 Carbon Dioxide (22 - 30 mmol/L) 27 Anion Gap (5 - 16) 11 BUN (7 - 17 mg/dL) 9 Creatinine (0.5 - 1.0 mg/dL) 0.5 Estimated GFR (>60 ml/min) > 60 BUN/Creatinine Ratio (7 - 25 %) 18.0 Glucose (65 - 99 mg/dL) 97 Calcium (8.4 - 10.2 mg/dL) 9.6 Magnesium (1.6 - 2.3 mg/dL) 2.0 Total Bilirubin (0.2 - 1.3 mg/dL) 0.5 AST (14 - 36 U/L) 12 L ALT (9 - 52 U/L) 39 Alkaline Phosphatase (<127 U/L) 88 Troponin I (< 0.11 ng/ml) < 0.01 Total Protein (6.3 - 8.2 g/dL) 6.8 Albumin (3.5 - 5.0 g/dL) 3.9 Globulin (1.9 - 4.2 gm/dL) 2.9 Albumin/Globulin Ratio (1.1 - 2.2 %) 1.3 TSH (0.270 - 4.200 uIU/mL) < 0.015 L Free T4 (0.64 - 1.79 ng/dL) 0.58 L Coagulation PT (9.4 - 12.5 SEC) 11.7 INR (0.90 - 1.19) 1.12 APTT (25 - 37 SEC) 30 D-Dimer High Sensitivty (0 - 243 ng/ml) 259 H Hematology CBC w Diff NO MAN DIFF REQ WBC (4.8 - 10.8 /CUMM) 15.3 H RBC (4.20 - 5.40 /CUMM) 4.52 Hgb (12.0 - 16.0 G/DL) 13.7 Hct (37 - 47 %) 40.2 MCV (81.0 - 99.0 FL) 88.9 MCH (27.0 - 31.0 PG) 30.4 MCHC (33.0 - 37.0 G/DL) 34.2 RDW (11.5 - 14.5 %) 13.0 Plt Count (130 - 400 /CUMM) 252 MPV (7.4 - 10.4 FL) 7.3 L Gran % (42.2 - 75.2 %) 80.1 H Lymphocytes % (20.5 - 51.1 %) 10.7 L Monocytes % (1.7 - 9.3 %) 8.7 Eosinophils % (0 - 5 %) 0.3 Basophils % (0.0 - 2.0 %) 0.2 Absolute Granulocytes (1.4 - 6.5 /CUMM) 12.2 H Absolute Lymphocytes (1.2 - 3.4 /CUMM) 1.6 Absolute Monocytes (0.10 - 0.60 /CUMM) 1.3 H Absolute Eosinophils (0.0 - 0.7 /CUMM) 0.1 Absolute Basophils (0.0 - 0.2 /CUMM) 0 Assessment/Plan Assessment/Plan This 52-year-old woman has 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 She has had a left neck lymph node dissection and then has undergone a total thyroidectomy with a central neck dissection. She now presents with a pulmonary embolus postoperatively. Her thyroid tests showed suppressed TSH. She was on liothyronine at home. Suggest today repeat her free T4, TSH, and total T3. In addition we should measure thyroglobulin and thyroglobulin antibody as a baseline. Continue liothyronine 25 mcg twice a day for now The patient will eventually need treatment with radioactive iodine. Right now she is being prepared it appears with thyroid hormone withdrawal. However we may want to consider using Thyrogen which is synthetic TSH rather than withdraw thyroid hormone prior to her treatment with radioactive iodine. I would like to discuss this with Litzy Boyd MD. Consult Acknowledgment - Thank you for your consult request.
[2017-10-11 08:27] LABS: ABSOLUTE BASOPHIL COUNT 0 /CUMM (0.0-0.2); ABSOLUTE EOSINOPHIL COUNT 0.1 /CUMM (0.0-0.7); ABSOLUTE LYMPH COUNT 2.3 /CUMM (1.2-3.4); BASOPHIL % 0.4 % (0.0-2.0); MEAN CORPUSCULAR HGB 30.6 PG (27.0-31.0); RED BLOOD CELL CT 3.73 /CUMM (4.20-5.40)
[2017-10-11 08:50] LABS: ABSOLUTE MONOCYTE COUNT 1.1 /CUMM (0.10-0.60); EOSINOPHIL % 0.8 % (0-5); GRANULOCYTE % 71.8 % (42.2-75.2); MEAN PLATELET VOLUME 8.5 FL (7.4-10.4); PLATELET COUNT 209 /CUMM (130-400); RBC DISTRIBUTION WIDTH 12.8 % (11.5-14.5); WHITE BLOOD CELL COUNT 12.5 /CUMM (4.8-10.8)
[2017-10-11 08:51] LABS: HEMATOCRIT 33.6 % (37-47)
[2017-10-11 10:00] LABS: PTT 76 SEC (25-37)
--- NOTE | 2017-10-11 12:17 | ULTRASOUND REPORT ---
EXAMINATION: US TRIPLEX OF LOWER EXTREMITIES, BILATERAL CLINICAL INFORMATION: Evaluate for deep vein thrombosis of. Patient noted to have pulmonary emboli COMPARISON: None TECHNIQUE: Color-flow triplex imaging with spectral analysis and compression Doppler were performed on the lower extremities. FINDINGS: Respiratory variation, normal compression and augmented flow are noted throughout the lower extremities. The visualized common femoral vein, superficial femoral vein, profunda femoral vein, popliteal vein and midcalf peroneal and posterior tibial venous segments show no evidence of deep venous thrombosis. There is no Garcia's cyst. IMPRESSION: Normal triplex scan without evidence of deep venous thrombosis involving the lower extremities.
[2017-10-11 14:22] VITALS: BP 122/82
[2017-10-11 22:44] VITALS: BP 120/78
[2017-10-11 22:46] LABS: PTT 69 SEC (25-37)
[2017-10-12 06:55] VITALS: BP 140/82
--- NOTE | 2017-10-12 07:30 | PN- Housestaff ---
See Addendum Subjective Follow-up For: Acute PE Tele-Events Since Last Visit: NS HR 82-100 Subjective: Patient reports no complaints or events overnight. Review of Systems Constitutional: Reports: see HPI. Objective Last 24 Hrs of Vital Signs/I&O Vital Signs Date Time Temp Pulse Resp B/P B/P Pulse O2 O2 Flow FiO2 Mean Ox Delivery Rate 10/12 1403 99.0 100 28 134/82 95 Room Air 10/12 0655 98.8 108 20 140/82 96 Room Air 10/11 2244 98.6 86 18 120/78 96 Room Air Physical Exam General Appearance: Alert, Oriented X3, Cooperative Neck: Neck stirrups intact, no drainage, hematoma, warmth Cardiovascular: Regular Rate, Normal S1, Normal S2 Lungs: Clear to Auscultation, Normal Air Movement Abdomen: Normal Bowel Sounds, Soft, No Tenderness Extremities: No Edema Current Medications: Current Medications Sig/Niya Start time Last Medication Dose Route Stop Time Status Admin Acetaminophen 650 MG ONCE ONE 10/11 1745 DC 10/11 PO 10/11 1746 1750 Apixaban 10 MG BID 10/12 1000 AC 10/12 PO 10/17 2200 1023 Calcium/Vitamin D 500 MG BID 10/10 1454 AC 10/12 PO 0933 Heparin Sodium 25,000 UNIT Q24H 10/11 1500 AC 10/11 (Porcine) IV 1500 Sodium Chloride 500 ML Hydromorphone HCl 0.2 MG Q4P PRN 10/10 2200 AC 10/11 IV 0623 Liothyronine Sodium 25 MCG BID 10/10 2200 AC 10/12 PO 0933 Oxycodone HCl 10 MG Q4-6 PRN PRN 10/10 1545 AC 10/12 PO 0521 Oxycodone HCl 5 MG Q4-6 PRN PRN 10/10 1500 AC 10/10 PO 1931 Last 24 Hrs of Lab/Kevon Results Last 24 Hrs of Labs/Mics: Laboratory Tests 10/12/17 0910: TSH < 0.015 L, Free T4 0.54 L, Thyroxine Binding Indx 28.0, CBC w Diff NO MAN DIFF REQ, RBC 3.96 L, MCV 90.1, MCH 30.3, MCHC 33.6, RDW 12.8, MPV 7.8, Gran % 73.6, Lymphocytes % 17.8 L, Monocytes % 7.4, Eosinophils % 0.8, Basophils % 0.4 , Absolute Granulocytes 8.5 H, Absolute Lymphocytes 2.1, Absolute Monocytes 0.9 H, Absolute Eosinophils 0.1, Absolute Basophils 0 10/11/170: APTT 69 H Assessment/Plan Assessment: Ms. Thibodeaux is a 52-year-old female with a past medical history significant for thyroid cancer status post thyroidectomy presents to the ED with shortness of breath and right-sided abdominal pain Pulmonary embolism most likely 2/2 recent surgery, immobility due to pain, and estrogen use CTA showed right lower lobe pulmonary emboli involving multiple segmental and subsegmental branches. Non-specific ground-glass opacification lung bases. BLE doppler negative for DVT. ECHO results: No obvious regional wall motion abnormalities. Unable to estimate the right ventricular systolic pressure. EF > 55% * Start Apixaban * Cardiology recommendations appreciated * Hold Premarin Leukocytosis most likely 2/2 to PE * Monitor white count R-sided chest/back pain * Oxycodone q4-6 * Dilaudid Diet: Heart healthy DVT ppx: Heparin Code: FULL Problem List: 1. Pulmonary embolism and infarction Pain Ratin Pain Location: Upper back, R lateral anterior chest Pain Goal: Pain 4 or less Pain Plan: Oxycodone Dilaudid Tomorrow's Labs & Rationales: None
--- NOTE | 2017-10-12 08:19 | PN- Endocrinology ---
Assessment/Plan Assessment: The patient feels improved. Her chest pain is less. She continues on liothyronine 25 mcg twice a day. Plan: Suggest repeat the patient's TSH free T4 and total T3 today. I will try to reach Dr. Litzy Boyd today with regard to preparation for radioactive iodine treatment for metastatic papillary cancer. I would prefer to prepare her with Thyrogen rather than thyroid hormone withdrawal. Her radioactive iodine treatment will not take place until about 6 weeks after the surgery. This will be done as an outpatient. Subjective Subjective: feels a little better Review of Systems Constitutional: Denies: chills, fever. Cardiovascular: Reports: chest pain. Respiratory: Reports: short of breath. Gastrointestinal: Denies: abdominal pain. Neurological/Psychological: Reports: anxiety. Objective Last 24 Hrs of Vital Signs/I&O Vital Signs Date Time Temp Pulse Resp B/P B/P Pulse O2 O2 Flow FiO2 Mean Ox Delivery Rate 10/12 0655 98.8 108 20 140/82 96 Room Air 10/11 2244 98.6 86 18 120/78 96 Room Air 10/11 1422 98.6 90 18 122/82 96 Room Air Vital Signs Date Time Temp Pulse Resp B/P B/P Pulse O2 O2 Flow FiO2 Mean Ox Delivery Rate 10/12 0655 98.8 108 20 140/82 96 Room Air 10/11 2244 98.6 86 18 120/78 96 Room Air 10/11 1422 98.6 90 18 122/82 96 Room Air Physical Exam General Appearance: alert, awake, anxious Head: normal appearance Neck: normal inspection Respiratory: normal breath sounds Cardiovascular: regular rate/rhythm Current Medications: Current Medications Sig/Niya Start time Last Medication Dose Route Stop Time Status Admin Acetaminophen 650 MG ONCE ONE 10/11 1745 DC 10/11 PO 10/11 1746 1750 Calcium/Vitamin D 500 MG BID 10/10 1454 AC 10/11 PO 212 Heparin Sodium 25,000 UNIT Q24H 10/11 1500 AC 10/11 (Porcine) IV 1500 Sodium Chloride 500 ML Heparin Sodium 25,000 UNIT Q24H 10/10 1400 DC 10/10 (Porcine) IV 10/11 1359 1445 Sodium Chloride 500 ML Hydromorphone HCl 0.2 MG Q4P PRN 10/10 2200 AC 10/11 IV 0623 Liothyronine Sodium 25 MCG BID 10/10 2200 AC 10/11 PO 2129 Oxycodone HCl 10 MG Q4-6 PRN PRN 10/10 1545 AC 10/12 PO 0521 Oxycodone HCl 5 MG Q4-6 PRN PRN 10/10 1500 AC 10/10 PO 1931 Patient Medication 1 ED ONE ONE 10/11 1415 DC 10/11 [facility] ED 10/11 1416 1457 Patient Medication 1 ED ONE ONE 10/11 1145 DC 10/11 [facility] ED 10/11 1146 1248 Results Pertinent Lab/Kevon Results: Laboratory Tests 10/11 10/11 2120 0900 Coagulation APTT (25 - 37 SEC) 69 H 76 H
--- NOTE | 2017-10-12 09:22 | Patient Discharge Instructions ---
Discharge Instructions General Discharge Information Special Instructions: please follow up with PCP with in a week of discharge. Please follow up with Dr Wills, further management of Hypothyroidism and doing radioiodine uptake test. Please watch for bleeding, and need to follow up with PCP for change in dose of eliquis. Please follow up with ENT for further management of thyroid cancer. Maintain hydration, remain active and avoid premarin. Diet Continue normal diet: Yes Activity Other activity limits: As tolerated Acute Coronary Syndrome Inclusion Criteria At DC or during hospital stay patient has or had the following: ACS DIAGNOSIS No Discharge Core Measures Meds if any: Prescribed or Continued at Discharge Meds if any: NOT Prescribed or Continued at Discharge Congestive Heart Failure Inclusion Criteria At DC or during hospital stay patient has or had the following: CHF DIAGNOSIS No Discharge Core Measures Meds if any: Prescribed or Continued at Discharge Meds if any: NOT Prescribed or Continued at Discharge Cerebrovascular accident Inclusion Criteria At DC or during hospital stay patient has or had the following: CVA/TIA Diagnosis No Discharge Core Measures Meds if any: Prescribed or Continued at Discharge Meds if any: NOT Prescribed or Continued at Discharge Venous thromboembolism Inclusion Criteria VTE Diagnosis Yes VTE Type Pulmonary Embolism VTE Confirmed by (Test) CT CHEST ANGIOGRAM Discharge Core Measures - Per Current guidelines, there needs to be overlap - treatment for the first 5 days of Warfarin therapy. - If discharged on Warfarin prior to 5 days of - overlap therapy, the patient will need to be - assessed for post discharge needs including - *Post discharge parental anticoagulation - *Warfarin and/or parental anticoagulation education - *Follow up date to check INR post discharge At least 5 days overlap therapy as Inpatient No Meds if any: Prescribed or Continued at Discharge Note: Overlap Therapy is Warfarin and Anticoagulant Meds if any: NOT Prescribed or Continued at Discharge No Overlap Therapy d/t Prescribed other Anticoag
[2017-10-12] MEDS ORDERED: ELIQUIS5 M1 PO (09:46)
--- NOTE | 2017-10-12 09:57 | ECHOCARDIOGRAM REPORT ---
RAÚL FUENTES Age: 52 : 1965 Gender: F Exam Date: 10/11/2017 10:37 Exam Location: 1 [address] Ht (in): 60 Wt (lb): 136 BSA: 1.63 BP: 130 / 80 Ordering Physician: Jenny Jolley MD Referring Physician: Jenny Jolley MD Technologist: Jake Mark [facility] Room Number: 180-2 Indications: ACUTE PULMONARY EMBOLISM Rhythm: Technical Quality: FINDINGS Left Ventricle Left ventricular cavity size normal. Normal left ventricular wall thickness. No obvious regional wall motion abnormalities. Left ventricular ejection fraction is estimated at > 55 %. Right Ventricle Normal right ventricular size and function. Right Atrium Normal right atrial size. Left Atrium Normal left atrial size. Mitral Valve Structurally normal mitral valve. Trace mitral regurgitation. Aortic Valve No aortic stenosis. Trileaflet aortic valve. Tricuspid Valve Structurally normal tricuspid valve. Trace tricuspid regurgitation. Unable to estimate the right ventricular systolic pressure. Pulmonic Valve Pulmonic valve not well visualized, grossly normal. Pericardium No pericardial effusion. Great Vessels Normal size aortic root. CONCLUSIONS Left ventricular cavity size normal. Normal left ventricular wall thickness. No obvious regional wall motion abnormalities. Left ventricular ejection fraction is estimated at > 55 %. Normal right ventricular size and function. Unable to estimate the right ventricular systolic pressure. No pericardial effusion. Henri Benedict M.D. (Electronically Signed) Final Date: 12 October 2017 09:56 MEASUREMENTS (Male / Female) Normal Values 2D ECHO LV Diastolic Diameter PLAX 4.3 cm 4.2 - 5.9 / 3.9 - 5.3 cm LV Systolic Diameter PLAX 2.5 cm 2.1 - 4.0 cm LV Fractional Shortening PLAX 41.9 % 25 - 46 % LV Ejection Fraction 2D Teich 73.1 % IVS Diastolic Thickness 1.1 cm LVPW Diastolic Thickness 1.1 cm LV Relative Wall Thickness 0.5 RV Internal Dim ED PLAX 2.6 cm 1.9 - 3.8 cm LVOT Diameter 1.8 cm Aortic Root Diameter 2.7 cm LA Systolic Diameter LX 3.3 cm 3.0 - 4.0 / 2.7 - 3.8 cm LA Volume 26.0 cm 18 - 58 / 22 - 52 cm Ascending Aorta Diameter 3.1 cm DOPPLER AV Peak Velocity 143.0 cm/s AV Peak Gradient 8.2 mmHg AV Mean Velocity 92.1 cm/s AV Mean Gradient 4.0 mmHg AV Velocity Time Integral 27.7 cm LVOT Peak Velocity 108.0 cm/s LVOT Peak Gradient 4.7 mmHg LVOT Mean Velocity 70.6 cm/s LVOT Mean Gradient 2.0 mmHg LVOT Velocity Time Integral 22.4 cm LVOT Stroke Volume 57.0 cm AV Area Cont Eq vti 2.1 cm AV Area Cont Eq pk 1.9 cm Mitral E Point Velocity 79.5 cm/s Mitral A Point Velocity 93.3 cm/s Mitral E to A Ratio 0.9 MV Deceleration Time 197.0 ms PV Peak Velocity 97.9 cm/s PV Peak Gradient 3.8 mmHg PV Mean Velocity 69.3 cm/s PV Mean Gradient 2.0 mmHg PV Velocity Time Integral 20.9 cm LV E' Lateral Velocity 12.6 cm/s Mitral E to LV E' Lateral Ratio 6.3 LV E' Septal Velocity 9.3 cm/s Mitral E to LV E' Septal Ratio 8.6
[2017-10-12 10:03] LABS: ABSOLUTE BASOPHIL COUNT 0 /CUMM (0.0-0.2); ABSOLUTE EOSINOPHIL COUNT 0.1 /CUMM (0.0-0.7); ABSOLUTE GRANULOCYTE CT 8.5 /CUMM (1.4-6.5); ABSOLUTE LYMPH COUNT 2.1 /CUMM (1.2-3.4); ABSOLUTE MONOCYTE COUNT 0.9 /CUMM (0.10-0.60); BASOPHIL % 0.4 % (0.0-2.0); EOSINOPHIL % 0.8 % (0-5); GRANULOCYTE % 73.6 % (42.2-75.2); HEMATOCRIT 35.7 % (37-47); MEAN CORPUSCULAR HGB 30.3 PG (27.0-31.0); MEAN CORPUSCULAR HGB CONC 33.6 G/DL (33.0-37.0); MEAN CORPUSCULAR VOLUME 90.1 FL (81.0-99.0); MEAN PLATELET VOLUME 7.8 FL (7.4-10.4); PLATELET COUNT 251 /CUMM (130-400); RBC DISTRIBUTION WIDTH 12.8 % (11.5-14.5); RED BLOOD CELL CT 3.96 /CUMM (4.20-5.40); WHITE BLOOD CELL COUNT 11.6 /CUMM (4.8-10.8)
[2017-10-12 14:03] VITALS: BP 134/82
--- NOTE | 2017-10-12 14:33 | Discharge Summary ---
See Addendum Visit Information Visit Dates Admission Date: 10/10/17 Discharge Date: 10/12/17 Hospital Course Course Attending Physician: Joe Lofton MD Primary Care Physician: Graham Dunn MD Hospital Course: Ms. Thibodeaux is a 52-year-old female with a past medical history significant for thyroid cancer status post thyroidectomy presents to the ED with shortness of breath and right-sided abdominal and chest pain Acute Pulmonary embolism CTA showed right lower lobe pulmonary emboli involving multiple segmental and subsegmental branches. Non-specific ground-glass opacification lung bases. We suspected that this finding was most likely secondary to her recent surgery, immobility due to pain, and estrogen use. Her bilateral extremity doppler was negative for DVT. ECHO results showed no obvious regional wall motion abnormalities but was unable to estimate the right ventricular systolic pressure , EF > 55%. She was started on IV Heparin. Her Premarin was placed on hold. She was subsequently transitioned to Apixaban Leukocytosis most likely secondary to PE We monitored her white count Atypical chest and abdominal pain Her pain was managed with Oxycodone and hydromorphone History of metastatic papillary thyroid cancer s/p thyroidectomy and node dissection Endocrinology was consulted. Her TSH and free T4 were monitored. She was resumed on her home medication Liothyronine and instructed to follow up as an outpatient Allergies: Coded Allergies: morphine (Intermediate, VOMITING 10/10/17) Pertinent Lab Results: 10/10/17-1219 CT ABD & PELVIS W IV CONTRAST; CTA CHEST-PULMONARY EMBOLISM IMPRESSION: 1. Evidence of right lower lobe pulmonary emboli involving multiple segmental and subsegmental branches. Ground-glass opacification in the right lung base in the lower lobe is nonspecific. In the setting of pulmonary emboli in the region, the possibility of a pulmonary infarction here is raised. Additional subsegmental atelectasis in the right lung base. Trace right pleural effusion. 2. No acute abnormality in the abdomen and pelvis. 3. Hypodense soft tissue fullness in the thyroid region with a punctate focus in the left thyroid region likely reflects a postsurgical change with fluid collection, correlate with nature of surgery. 10/11/17- ECHOCARDIOGRAM CONCLUSIONS Left ventricular cavity size normal. Normal left ventricular wall thickness. No obvious regional wall motion abnormalities. Left ventricular ejection fraction is estimated at > 55 %. Normal right ventricular size and function. Unable to estimate the right ventricular systolic pressure. No pericardial effusion. 10/11/17 US-EXT BILAT VENOUS DOPPLER FINDINGS: Respiratory variation, normal compression and augmented flow are noted throughout the lower extremities. The visualized common femoral vein, superficial femoral vein, profunda femoral vein, popliteal vein and midcalf peroneal and posterior tibial venous segments show no evidence of deep venous thrombosis. There is no Garcia's cyst. IMPRESSION: Normal triplex scan without evidence of deep venous thrombosis involving the lower extremities. Disposition Summary Disposition Principal Diagnosis: Acute Pulmonary Embolism Additional Diagnosis: Chest pain, Abdominal pain Discharge Disposition: home or self care Discharge Instructions General Discharge Information Code Status: Full Code Patient's Diet: Heart healthy Patient's Activity: As tolerated Follow-Up Instructions/Appts: please follow up with PCP with in a week of discharge. Please follow up with Dr Wills, further management of Hypothyroidism and doing radioiodine uptake test. Please watch for bleeding, and need to follow up with PCP for change in dose of eliquis. Please follow up with ENT for further management of thyroid cancer. Maintain hydration, remain active and avoid premarin. Medications at Discharge Discharge Medications: Stop taking the following medications: Estrogenic Subst Conj (Premarin) 0.625 MG TABLET ORAL DAILY Continue taking these medications: Multiple Vitamin (Multivitamins) 1 EACH TABLET 1 Tablet ORAL DAILY Comments: NOT GIVEN IN HOSPITAL Acetaminophen (Tylenol) 325 MG TABLET 325 Milligram ORAL EVERY 4-6 HOURS NEEDED as needed for pain control Days = 10 Instructions: available over the counter Comments: Last Taken 10/11/17 17:50 PM Calcium Carbonate/Vitamin D3 (Os-Yaakov 500+D3 Caplet) 500 MG-600 TABLET 500 Milligram ORAL TWICE DAILY Qty = 60 Instructions: continue as per Comments: Last Taken 10/12/17 09:33 AM Liothyronine Sodium (Cytomel) 25 MCG TABLET 30 Microgram ORAL TWICE DAILY Qty = 60 Instructions: as per Comments: Last Taken 10/12/17 09:33 AM Oxycodone HCl (Oxycodone HCl) 5 MG TABLET 1-2 Tablet ORAL EVERY 4-6 HOURS NEEDED as needed for pain control Qty = 30 Instructions: tylenol may be used alternatively or in combination Comments: Last Taken 10/12/17 14:33 PM Start taking the following new medications: Apixaban (Eliquis) 5 MG TABLET 10 Milligram ORAL TWICE DAILY Qty = 30 No Refills Instructions: Take 10 mg (2 tabs) twice daily for 7 days then 5 mg (1 tab) twice daiy thereafter Comments: Last Taken 10/12/17 10:23 AM Copies To: Elma ELDRIDGE,Gaston Donaldson; Shaun ELDRIDGE,Graham Winslow
== END 2017-10-12 15:25 | DRG 205 ==
LOC: ERH 10:53 → 1NO 14:52 → ERHI 14:52 → ENTRNSPT 19:04 → CMPTRNSPT 19:41 → ENRESERV 20:56 → ENTRNSPT 21:54 → EDTRNSPTSTS 21:57 → CMPTRNSPT 22:30 → 1NO 22:39 → ENPENDDIS 10-12 10:00 → ENTRNSPT 10-12 15:17 → EDTRNSPTSTS 10-12 15:19 → EDTRNSPT 10-12 15:19 → 1NO 10-12 15:25 → CMPTRNSPT 10-12 15:32
PROVIDERS: Internal Medicine; Internal Medicine Adolescent Medicine; Physician Assistant Medical; Student in an Organized Health Care Education/Training Program
DX: J95.89 Other postprocedural complications and disorders of respiratory system, not elsewhere classified (principal); I26.99 Other pulmonary embolism without acute cor pulmonale; D72.829 Elevated white blood cell count, unspecified; Z85.850 Personal history of malignant neoplasm of thyroid; E03.9 Hypothyroidism, unspecified; R00.0 Tachycardia, unspecified; F41.9 Anxiety disorder, unspecified
CPT/HCPCS: 1NSP; 84442; 36415; 36592; 74177; 81001; 87040; 93005; 93010; 93306; 93970; 96374; 96375; 99291; J0456; J0696; J1644; J1885; J2405; J7040; J7060

== ENCOUNTER 2017-10-20 11:51 | Emergency (ER) | payer OTHER ==
[~2017-10-20] VITALS: Ht 152.4 cm; Wt 60.3 kg
[~2017-10-20 11:51] MED LIST changes: +ELIQUIS5 M1 PO
--- NOTE | 2017-10-20 12:27 | ED CARDIAC/CP/PALPITATIONS ---
History of Present Illness General Chief Complaint: General Adult Stated Complaint: PT IS HAVING PAIN ON THE RT SIDE Source: patient, old records Exam Limitations: no limitations Vital Signs & Intake/Output Vital Signs & Intake/Output Vital Signs Date Time Temp Pulse Resp B/P B/P Pulse O2 O2 Flow FiO2 Mean Ox Delivery Rate 10/20 1508 98.6 83 16 108/80 99 Room Air 10/20 1456 97 Room Air 10/20 1221 99.0 95 20 150/68 97 Room Air Room Air Allergies Coded Allergies: morphine (Intermediate, VOMITING 10/10/17) Reconcile Medications Acetaminophen (Mapap) 500 MG TABLET 2 TAB PO PRN PAIN (Reported) Apixaban (Eliquis) 5 MG TABLET 1 TAB PO BID BLOOD THINNER (Reported) Ascorbate Calcium (Vitamin C) (Unknown Strength) TABLET (Unknown Dose) PO DAILY SUPPLEMENT (Reported) Azithromycin (Zithromax) 250 MG TABLET 1 DP PO AD pna 2 the first day followed by 1 for days 2-5 Calcium Carbonate/Vitamin D3 (Os-Yaakov 500+D3 Caplet) 500 MG-600 TABLET 500 MG PO BID s/p total thyroidectomy continue as per Cholecalciferol (Vitamin D3) (Vitamin D) (Unknown Strength) TABLET (Unknown Dose) PO DAILY SUPPLEMENT (Reported) Cyanocobalamin (Vitamin B-12) (Vitamin B-12) (Unknown Strength) TABLET ( Unknown Dose) PO DAILY SUPPLEMENT (Reported) Levothyroxine Sodium 100 MCG TABLET 1 TAB PO DAILY THYROID (Reported) Liothyronine Sodium (Cytomel) 25 MCG TABLET 30 MCG PO BID s/p total thyroidectomy as per Multiple Vitamin (Multivitamins) 1 EACH TABLET 1 TAB PO DAILY supplement ( Reported) Omeprazole 40 MG CAPSULE. 1 CAP PO DAILY HEARTBURN (Reported) Oxycodone HCl 5 MG TABLET 1-2 TAB PO Q4-6 PRN PRN pain control tylenol may be used alternatively or in combination Oxycodone HCl/Acetaminophen (Percocet 5-325 MG Tablet) 5 MG-325 MG TABLET 1 TAB PO BID PRN pain Triage Note: 52 YEAR OLD FEMALE DIAGNOSED WITH PE LAST WEEK. PT ADMITTED FOR TWO DAYS AND DISCARGED WITH ELIQUIS. PT REPORTS TAKING ELIQUIS PRESCRIBED. PT REPORTS PAIN TO RIGHT RIBCAGE STARTING THIS MORNING. PT TEARFUL IN TRIAGE STATES SHE IS SCARED TO MOVE. REPORTS SOB WHEN TAKING A DEEP BREATH. Triage Nurses Notes Reviewed? yes Onset: Abrupt Duration: day(s): (2), constant Timing: recent history Quality/Severity: moderate, aching Location: r cehst wall Radiation: back Activities at Onset: none Prior Chest Pain/Card Workup: pe Associated Symptoms: denies HPI: 52-year-old female recently diagnosed last week with a pulmonary embolism for which she was discharged last week on elliquis, thyroidectomy presents emergency room for evaluation complaining of sudden onset right-sided chest wall pain radiating into her axilla and into her right back that began yesterday. Patient has been compliant with taking her anticoagulant. She states since being discharge had some discomfort for the past 2 days she had no pain. She has not needed to take anything for her symptoms. There is no pain with inspiration and no cough no hemoptysis no fever no chills. No abdominal pain nausea vomiting. No leg swelling (Noe Justin) Past History Travel History Traveled to [place] past 21 day No Medical History Any Pertinent Medical History? see below for history Neurological: NONE EENT: THYROIDECTOMY Cardiovascular: NONE Respiratory: pulmonary embolism Gastrointestinal: NONE Hepatic: NONE Renal: NONE Musculoskeletal: NONE Psychiatric: NONE Endocrine: NONE Blood Disorders: NONE Cancer(s): thyroid cancer TRAINING INTERN/Reproductive: NONE History of MRSA: No History of VRE: No History of CDIFF: No Surgical History Surgical History: thyroidectomy, lymphadenectomy Psychosocial History Who do you live with Family Services at Home None What is your primary language Georgian Tobacco Use: Never used Family History Hx Contributory? No (Noe Justin) Review of Systems Review of Systems Constitutional: Reports: see HPI. Comments Review of systems: See HPI, All other systems negative. Constitutional, no chills no fever, HEENT: no sore throat no congestion, no ear pain Cardiovascular: chest pain , no palpitation Skin: no rashes, no change in skin Respiratory: No dyspnea no cough no sputum no hemoptysis GI: No nausea no vomiting, no diarrhea, Muscle skeletal: No joint pain, no back pain, no neck pain, Neurologic: , no headache Psych: No stress Heme/endocrine: No bruising Immunology: No lymphadenopathy (Noe Justin) Physical Exam Physical Exam General Appearance: well developed/nourished, no apparent distress, alert, awake Cardiovascular: regular rate/rhythm Comments: Well-developed well-nourished person in no acute distress HEENT: Normal EENT exam; PERRL, EOMI, HEAD is atraumatic. moist mucous membranes. Neck: Supple, normal range of motion Back: right upper back paramuscle tenderness, no rash no CVA tenderness. Full range of motion Cardiovascular: Regular rate and rhythms no murmurs rubs or gallops, normal JVP Respiratory: Chesttender. no rash, no vesicles, There were no bony deformities, no asymmetry. No respiratory distress. Patient speaking in full complete sentences. Breath sounds clear to auscultation bilaterally: NO W/R/R Abdomen: Soft, nontender nondistended Extremity: No edema, full range of motion of extremities, pain in chest reproducible with rom of right arm, radial pulse 2+ rue Neuro: Alert oriented x3, motor sensory normal. There were no obvious focal neurologic abnormalities. Skin: No appreciable rash on exposed skin, skin is warm and dry. Psych: Mood and affect is normal, memory and judgment is normal. Core Measures ACS in differential dx? Yes CVA/TIA Diagnosis No Sepsis Present: No Sepsis Focused Exam Completed? No (Cristin JOE,Noe) Progress Differential Diagnosis: AMI, aortic dissection, atrial fibrillation, cholecystitis, CHF/pulm edema, costochondritis, myocarditis, pericarditis, pneumonia, pneumothorax, pulmonary embolism, unstable angina, V-fib/V-Tach, malignancy Plan of Care: Orders Procedure Date/time Status TROPONIN LEVEL 10/20 1600 Complete EKG 10/20 1600 Active TROPONIN LEVEL 10/20 1226 Complete PROTHROMBIN TIME 10/20 1226 Complete COMPREHENSIVE METABOLIC PANEL 10/20 1226 Complete CBC WITHOUT DIFFERENTIAL 10/20 1226 Complete EKG 10/20 1226 Active Laboratory Tests 10/20/17 1600: Troponin I < 0.01 10/20/17 1302: Anion Gap 14, Estimated GFR > 60, BUN/Creatinine Ratio 15.0, Glucose 83, Calcium 9.6, Total Bilirubin 0.3, AST 21, ALT 59 H, Alkaline Phosphatase 118, Troponin I < 0.01, Total Protein 7.2, Albumin 3.9, Globulin 3.3, Albumin/Globulin Ratio 1.2, PT 15.9 H, INR 1.52 H, CBC w Diff NO MAN DIFF REQ, RBC 4.59, MCV 89.0, MCH 29.7, MCHC 33.3, RDW 13.0, MPV 7.2 L, Gran % 72.7, Lymphocytes % 20.0 L, Monocytes % 5.9, Eosinophils % 1.0, Basophils % 0.4, Absolute Granulocytes 9.3 H, Absolute Lymphocytes 2.6, Absolute Monocytes 0.8 H, Absolute Eosinophils 0.1 , Absolute Basophils 0.1 Labs ordered old records. CAT scan EKG ordered case discussed with Dr. Edwards agrees with plan 10/20/2017 2:37:42 PM discussed with the patient at length all of her lab results pending CAT scan results she reports feeling improvement with Percocet I discussed with the patient her CAT scan findings and need for repeat troponin. On discussion with her and her regarding the CT opacity right lower lobe pleural effusion, I Discussed with her in my differential included pneumonia versus infarction versus malignancy patient feels well- no hemoptysis, no dyspnea. Her repeat troponin is negative the case was discussed with Dr. Edwards and he advised that the patient can be discharged home with close follow- up with her primary care physician Dr. Dunn. The patient feels comfortable with this plan, if second troponin is negative we will send her home with azithromycin and Percocet for pain, with understanding that peggy will follow up with dr dunn this week for follow up and possible repeat imaging. On repeat evaluation patient remains asymptomatic and discussed with her repeat troponin. I had an extensive conversation regarding need for close follow up with their primary care physician this week as well as return precautions. I answered all of their questions, they feel comfortable with the plan and follow- up care. I discussed with the patient/family the medications that they will receive. I gave them signs and symptoms that could indicate an adverse reaction. I have advised them to limit their activities until they can see how they respond to the medication. Diagnostic Imaging: Viewed by Me: CT Scan. Discussed w/RAD: CT Scan. Radiology Impression: PATIENT: PEGGY FUENTES PRESENT AGE: 52 PATIENT ACCOUNT NO: [id number] : 65 LOCATION: [facility] ORDERING PHYSICIAN: Noe JOE SERVICE DATE: 10/20/17075 EXAM TYPE: CAT - CTA CHEST-PULMONARY EMBOLISM EXAMINATION: CT ANGIOGRAM CHEST WITHOUT AND WITH CONTRAST (CT PULMONARY ANGIOGRAM FOR PE) CLINICAL INFORMATION: Rule out recurrent PE. Right-sided chest pain. History of PE on blood thinners. COMPARISON: CTA of the chest done on 10/10/2017. TECHNIQUE: Prior to contrast administration, noncontrast localization images were obtained. Subsequently, multidetector volumetric imaging was performed from the thoracic inlet to below the diaphragms following the administration of 100 mL Optiray 350 intravenous contrast. No contrast reaction reported. Sagittal, coronal, and MIP oblique sagittal reformatted images were obtained on the CT workstation, uploaded to PACS, and reviewed. DLP: 274.81 mGy-cm. FINDINGS: QUALITY OF STUDY/CONTRAST BOLUS: Satisfactory PULMONARY ARTERIES: No central or segmental pulmonary emboli. Specifically, previously documented right lower lobar segmental pulmonary emboli shows interval resolution. THORACIC AORTA: No aneurysm or dissection. LUNG: Nonspecific airspace opacification is noted at posterior basal segment of right lower lobe of the lung, shows interval progression since prior study. The remainder of the lung pérez bilaterally appear clear. The tracheobronchial tree appears patent. PLEURA: There is a small right-sided pleural effusion present, increased in size since prior study dated 10/10/2017. MEDIASTINUM: Normal heart size. No pericardial effusion. No hilar or mediastinal lymphadenopathy. No evidence of septal bowing or right heart strain. CHEST WALL/ AXILLA: No axillary or internal mammary lymphadenopathy. OSSEOUS STRUCTURES: No acute or suspicious osseous abnormality. UPPER ABDOMEN: Unremarkable. No reflux of contrast into the hepatic veins to suggest elevated right heart pressures. IMPRESSION: 1. Interval resolution of previously documented right lower lobar segmental pulmonary embolism since the prior study dated 10/10/2017. 2. Interval worsening of nonspecific airspace opacity at right lower lobe of the lung and evidence of small right-sided pleural effusion, shows interval increase in the size of the effusion since prior study dated 10/10/2017. 3. No other significant change. VTE: Negative. DICTATED BY: Sandeep Ryan MD DATE/TIME DICTATED:1445 MANAGER BILINGUAL:AYAAN DATE/TIME TRANSCRIBED:10/20/171445 CONFIDENTIAL, DO NOT COPY WITHOUT APPROPRIATE AUTHORIZATION. <Electronically signed in Other Vendor System> SIGNED BY: Sandeep Ryan MD 10/20/17 1524 Initial ED EKG: nsr at 80, nonspecific st seg changes, normal axis Prior EKG: unchanged Repeat EKG: unchanged Rhythm Strip: normal sinus rhythm (Noe Justin) Departure Departure Disposition: HOME OR SELF CARE Condition: Stable Clinical Impression Primary Impression: Pneumonia Secondary Impressions: Opacity of lung on imaging study, Pleural effusion Referrals: Graham Dunn MD (PCP/Family) Additional Instructions: zpak as directed. percocet for breakthrough pain. follow up with your pmd dr dunn on sunday as dsicussed as you will most likely require repeat imaging next week to ensure improvement in the opacity on the cat scan today. return at anytime sooner if you develop worseing pain despite medication, develop shortness of breath, fever, chills or any other concerns Departure Forms: Customer Survey General Discharge Information Prescriptions: Current Visit Scripts Azithromycin (Zithromax) 1 DP PO AD #6 TAB 2 the first day followed by 1 for days 2-5 Oxycodone HCl/Acetaminophen (Percocet 5-325 MG Tablet) 1 TAB PO BID PRN pain #6 TAB (Noe Justin) PA/HIGH DENSITY [employer]ALC COATER OPERATOR Co-Sign Statement Statement: ED Attending supervision documentation- [X] I saw and evaluated the patient. I have also reviewed all the pertinent lab results and diagnostic results. I agree with the findings and the plan of care as documented in the PA's/HIGH DENSITY TALC CO[employer] OPERATOR's documentation. [] I have reviewed the ED Record and agree with the PA's/HIGH DENSITY TALC COATER OPERATOR's documentation. [] Additions or exceptions (if any) to the PAs/HIGH DENSITY TAL[employer] COATER OPERATOR's note and plan are summarized below: [] (Brad Edwards DO) Critical Care Note Critical Care Note Critical Care Time: non-applicable (Noe Justin) Critical Care Time: non-applicable (Noe Justin)
[2017-10-20 13:40] LABS: ABSOLUTE BASOPHIL COUNT 0.1 /CUMM (0.0-0.2); ABSOLUTE EOSINOPHIL COUNT 0.1 /CUMM (0.0-0.7); ABSOLUTE GRANULOCYTE CT 9.3 /CUMM (1.4-6.5); ABSOLUTE LYMPH COUNT 2.6 /CUMM (1.2-3.4); ABSOLUTE MONOCYTE COUNT 0.8 /CUMM (0.10-0.60); BASOPHIL % 0.4 % (0.0-2.0); GRANULOCYTE % 72.7 % (42.2-75.2); HEMATOCRIT 40.8 % (37-47); MEAN CORPUSCULAR HGB 29.7 PG (27.0-31.0); MEAN CORPUSCULAR HGB CONC 33.3 G/DL (33.0-37.0); MEAN PLATELET VOLUME 7.2 FL (7.4-10.4); PLATELET COUNT 726 /CUMM (130-400); RED BLOOD CELL CT 4.59 /CUMM (4.20-5.40); WHITE BLOOD CELL COUNT 12.9 /CUMM (4.8-10.8)
[2017-10-20 13:46] LABS: PT 15.9 SEC (9.4-12.5)
[2017-10-20] MEDS ORDERED: ELIQUIS5 M1 PO (13:50)
[2017-10-20] MEDS ORDERED: LEVOTHYROXINE100 MC1 PO (13:50)
[2017-10-20] MEDS ORDERED: OMEPRAZOLE40 M1 PO (13:51)
[2017-10-20] MEDS ORDERED: MAPAP500 M3 PO (13:52)
[2017-10-20] MEDS ORDERED: VITAMIN B-12500 MC2 PO (13:52)
[2017-10-20] MEDS ORDERED: VITAMIN C500 M6 PO (13:53)
[2017-10-20] MEDS ORDERED: VITAMIN D2000 UNI1 PO (13:53)
[2017-10-20 15:08] VITALS: BP 108/80
--- NOTE | 2017-10-20 15:24 | CT SCAN REPORT ---
EXAMINATION: CT ANGIOGRAM CHEST WITHOUT AND WITH CONTRAST (CT PULMONARY ANGIOGRAM FOR PE) CLINICAL INFORMATION: Rule out recurrent PE. Right-sided chest pain. History of PE on blood thinners. COMPARISON: CTA of the chest done on 10/10/2017. TECHNIQUE: Prior to contrast administration, noncontrast localization images were obtained. Subsequently, multidetector volumetric imaging was performed from the thoracic inlet to below the diaphragms following the administration of 100 mL Optiray 350 intravenous contrast. No contrast reaction reported. Sagittal, coronal, and MIP oblique sagittal reformatted images were obtained on the CT workstation, uploaded to PACS, and reviewed. DLP: 274.81 mGy-cm. FINDINGS: QUALITY OF STUDY/CONTRAST BOLUS: Satisfactory PULMONARY ARTERIES: No central or segmental pulmonary emboli. Specifically, previously documented right lower lobar segmental pulmonary emboli shows interval resolution. THORACIC AORTA: No aneurysm or dissection. LUNG: Nonspecific airspace opacification is noted at posterior basal segment of right lower lobe of the lung, shows interval progression since prior study. The remainder of the lung pérez bilaterally appear clear. The tracheobronchial tree appears patent. PLEURA: There is a small right-sided pleural effusion present, increased in size since prior study dated 10/10/2017. MEDIASTINUM: Normal heart size. No pericardial effusion. No hilar or mediastinal lymphadenopathy. No evidence of septal bowing or right heart strain. CHEST WALL/AXILLA: No axillary or internal mammary lymphadenopathy. OSSEOUS STRUCTURES: No acute or suspicious osseous abnormality. UPPER ABDOMEN: Unremarkable. No reflux of contrast into the hepatic veins to suggest elevated right heart pressures. IMPRESSION: 1. Interval resolution of previously documented right lower lobar segmental pulmonary embolism since the prior study dated 10/10/2017. 2. Interval worsening of nonspecific airspace opacity at right lower lobe of the lung and evidence of small right-sided pleural effusion, shows interval increase in the size of the effusion since prior study dated 10/10/2017. 3. No other significant change. VTE: Negative.
[2017-10-20] MEDS ORDERED: PERCOCET 5-3251 EACH PO (15:43)
[2017-10-20] MEDS ORDERED: ZITHROMAX250 M2 PO (15:43)
== END 2017-10-20 18:32 ==
LOC: ERH 11:51
PROVIDERS: Physician Assistant Medical
DX: J18.9 Pneumonia, unspecified organism (principal); J90 Pleural effusion, not elsewhere classified; R07.89 Other chest pain
CPT/HCPCS: 93005; 93010